=== PATIENT | female | born 1970 | race Caucasian/White ===

== ENCOUNTER 2020-04-08 | Outpatient (REF) | payer OTHER, SELFPAY | END 2020-04-08 00:01 | disposition home or self-care (01) | LOC: HO.LNP | PROVIDERS: Visit Provider Hospitalist | DX: E03.9 Hypothyroidism, unspecified (principal) | CPT/HCPCS: 84439; 84443 ==

== ENCOUNTER 2020-11-18 11:33 | Outpatient (REF) | payer OTHER, SELFPAY ==
[2020-11-20 07:27] LABS: SARS COV2 IgG Negative (Negative)
== END 2020-11-18 11:34 | disposition home or self-care (01) ==
LOC: HO.LAB 11:33
PROVIDERS: PCP Hospitalist; Visit Provider Nurse Practitioner Family
DX: Z00.00 Encounter for general adult medical examination without abnormal findings (principal); R43.9 Unspecified disturbances of smell and taste
CPT/HCPCS: 36415; 86769

== ENCOUNTER 2021-02-08 09:34 | Outpatient (REF) | payer OTHER, SELFPAY ==
[2021-02-11 01:51] LABS: TS Negative Control Passed; TS Panel A 0; TS Panel B 1; TS Positive Control Passed; TSpotTB Negative (SeeBelow)
== END 2021-02-08 09:35 | disposition home or self-care (01) ==
LOC: HO.WFDLDS 09:34
PROVIDERS: Visit Provider Family Medicine
DX: Z11.1 Encounter for screening for respiratory tuberculosis (principal)
CPT/HCPCS: 36415; 86481

== ENCOUNTER 2021-11-13 13:12 | Outpatient (REF) | payer OTHER, SELFPAY ==
[2021-11-14 07:17] LABS: CT PCR NOT DETECTED (Not Detect.); NG PCR NOT DETECTED (Not Detect.)
== END 2021-11-13 13:13 | disposition home or self-care (01) ==
LOC: HO.LAB 13:12
PROVIDERS: PCP Hospitalist; Visit Provider Obstetrics & Gynecology
DX: Z11.3 Encounter for screening for infections with a predominantly sexual mode of transmission (principal); N93.9 Abnormal uterine and vaginal bleeding, unspecified
CPT/HCPCS: 87491; 87591; 99202

== ENCOUNTER 2021-12-19 12:54 | Outpatient (REF) | payer OTHER, SELFPAY ==
--- NOTE | ~2021-12-19 | MM_ITS ---
EXAMINATION: MM SCREENING DIGITAL BREAST TOMOSYNTHESIS, BILATERAL CLINICAL INFORMATION: Screening. Asymptomatic. The lifetime risk of breast cancer based on the Tyrer-Cuzick Model is 7%. COMPARISON: Mammography: 10/10/2018, 11/27/2013 TECHNIQUE: Digital breast tomosynthesis is performed in both the craniocaudal and mediolateral oblique views along with computer-aided detection (CAD). Synthesized 2D images are generated from the tomosynthesis. FINDINGS: The breasts are almost entirely fatty (ACR BI-RADS breast composition Category a). Background stromal markings are stable. No developing density. The axilla and skin contours are unremarkable. There are no significant masses, abnormal calcifications, or other abnormalities. MM/MM tomosynthesis screening BI IMPRESSION: No mammographic evidence of malignancy. ASSESSMENT: BI-RADS 1: Negative RECOMMENDATION: Routine annual mammography screening. This patient's information was entered into a reminder system with a target due date for their next mammogram.
--- NOTE | ~2021-12-19 | US_ITS ---
EXAMINATION: US PELVIS CLINICAL INFORMATION: Abnormal uterine and vaginal bleeding. COMPARISON: CT scan of 12/23/2011. TECHNIQUE: Ultrasound of the pelvis is performed using both transabdominal and transvaginal transducers along with Doppler. Transvaginal imaging is performed due to inadequate visualization transabdominally. FINDINGS: UTERUS: The uterus is anteverted and measures 11.9 x 7.9 x 9.2 cm. The double wall endometrial thickness is abnormally thick at 24 mm. There is a 5.7 x 4.0 x 5.3 cm circumscribed hypoechoic lesion seen about the left fundus consistent with fibroid. ADNEXA: Both ovaries are visualized. There is normal color flow to the adnexa. There is no ovarian torsion. There is no pelvic ascites or fluid collection. Right ovary measures 2.8 x 2.5 x 2.7 cm. Volume of 10.1 mL. Left ovary measures 2.4 x 1.3 x 1.9 cm. Volume of 3.3 mL. US/US pelvic and transvaginal IMPRESSION: Abnormally thickened endometrium without definite focal abnormality appreciated. Uterine fibroid.
== END 2021-12-19 12:55 | disposition home or self-care (01) ==
LOC: HO.US 12:54
PROVIDERS: Visit Provider Obstetrics & Gynecology
DX: Z12.31 Encounter for screening mammogram for malignant neoplasm of breast (principal); N93.9 Abnormal uterine and vaginal bleeding, unspecified
CPT/HCPCS: 76830; 76856; 77063; 77067

== ENCOUNTER 2021-12-28 10:01 | Outpatient (REF) | payer OTHER, SELFPAY | END 2021-12-28 10:02 | disposition home or self-care (01) | LOC: HO.LAB 10:01 | PROVIDERS: PCP Hospitalist; Visit Provider Obstetrics & Gynecology | DX: N93.9 Abnormal uterine and vaginal bleeding, unspecified (principal) | CPT/HCPCS: 58100; 88305 ==

== ENCOUNTER → 2022-01-24 10:55 | Outpatient (BNVA) | payer OTHER, SELFPAY | PROVIDERS: PCP Hospitalist; Visit Provider Obstetrics & Gynecology | DX: D21.9 Benign neoplasm of connective and other soft tissue, unspecified (principal); E03.9 Hypothyroidism, unspecified; N93.9 Abnormal uterine and vaginal bleeding, unspecified | CPT/HCPCS: 99212 ==

== ENCOUNTER 2022-03-26 09:37 | Outpatient (REF) | payer OTHER, SELFPAY ==
[2022-03-26 11:29] LABS: Hematocrit 33.2 % (37.0-47.0); Hemoglobin 9.7 g/dl (12.0-16.0); Mean Corpuscular HGB Conc 29.2 g/dl (31.0-35.0); Mean Corpuscular Volume 78.7 fL (80.0-98.0); Mean Platelet Volume 9.1 fL (9.4-12.3); Platelet Count 362 X10*3/uL (160-400); Red Blood Count 4.22 X10*6/uL (4.20-5.50); Red Cell Distribution Width 14.6 % (11.0-16.0); White Blood Count 5.7 X10*3/uL (4.8-10.8)
[2022-03-26 12:39] LABS: TSH reflex Free T4 1.42 uIU/mL (0.32-4.0)
== END 2022-03-26 09:38 | disposition home or self-care (01) ==
LOC: HO.WFDLDS 09:37
PROVIDERS: Visit Provider Hospitalist
DX: Z00.00 Encounter for general adult medical examination without abnormal findings (principal); E03.9 Hypothyroidism, unspecified; N93.9 Abnormal uterine and vaginal bleeding, unspecified
CPT/HCPCS: 36415; 84443; 85027

== ENCOUNTER 2022-04-09 10:20 | Outpatient (REF) | payer OTHER, SELFPAY ==
[2022-04-09 14:03] LABS: Hemoglobin 10.5 g/dl (12.0-16.0); Mean Corpuscular Hemoglobin 24.1 pg (27.0-33.0); Mean Corpuscular Volume 80.5 fL (80.0-98.0); Mean Platelet Volume 9.3 fL (9.4-12.3); Platelet Count 349 X10*3/uL (160-400); Red Blood Count 4.35 X10*6/uL (4.20-5.50); Red Cell Distribution Width 17.6 % (11.0-16.0); White Blood Count 4.6 X10*3/uL (4.8-10.8)
[2022-04-09 14:39] LABS: HCG Quantitative < 2 mIU/mL; TSH reflex Free T4 5.38 uIU/mL (0.32-4.0)
[2022-04-09 15:21] LABS: Erythrocyte Sedimentation Rate 26 MM/HR (0-20)
[2022-04-09 15:23] LABS: Free T4 (Free Thyroxine) 1.12 ng/dL (0.71-1.85)
[2022-04-11 08:42] LABS: Follicle Stimulating Hormone 14.2 mIU/mL; Lutenizing Hormone 8.7 mIU/mL
[2022-04-11 12:36] LABS: CRP High Sensitivity >10.0 mg/L
== END 2022-04-09 10:21 | disposition home or self-care (01) ==
LOC: HO.WFDLDS 10:20
PROVIDERS: Absent Provider Hospitalist; Visit Provider Obstetrics & Gynecology
DX: N93.9 Abnormal uterine and vaginal bleeding, unspecified (principal); M79.10 Myalgia, unspecified site
CPT/HCPCS: 36415; 83001; 83002; 84439; 84443; 84702; 85027; 85652; 86141

== ENCOUNTER → 2022-04-30 10:10 | Outpatient (BNVA) | payer OTHER, SELFPAY | PROVIDERS: PCP Hospitalist; Visit Provider Obstetrics & Gynecology | DX: N93.9 Abnormal uterine and vaginal bleeding, unspecified (principal); D21.9 Benign neoplasm of connective and other soft tissue, unspecified | CPT/HCPCS: 99212 ==

== ENCOUNTER 2022-07-25 12:46 | Outpatient (REF) | payer OTHER, SELFPAY ==
--- NOTE | ~2022-07-25 | US_ITS ---
EXAMINATION: US PELVIS CLINICAL INFORMATION: Myoma. History of tubal ligation COMPARISON: Ultrasound pelvis 12/19/2021. TECHNIQUE: Ultrasound of the pelvis is performed using both transabdominal and transvaginal transducers along with Doppler. Transvaginal imaging is performed due to inadequate visualization transabdominally. FINDINGS: Uterus: The uterus is anteverted, slightly retroflexed and measures 10.6 x 6.2 x 7.5 cm. The double wall endometrial thickness is 1.7 cm. There are small nabothian cysts seen in the cervix. The uterus is smooth in contour and has normal myometrial echogenicity. There is a solitary hypoechoic lesion in the left fundus measuring 4.7 x 4.0 x 5.0 cm consistent with fibroid. Previously it measured 5.7 x 4.0 x 5.3 cm. Adnexa: Both ovaries are visualized. There is normal color flow to the adnexa. There is no ovarian torsion. There is no pelvic ascites or fluid collection. Right ovary measures 1.7 x 1.6 x 1.7 cm and volume 2.4 mL. There is a small echogenic calcification. Left ovary is not visualized. There is no free fluid in the cul-de-sac. US/US pelvic and transvaginal IMPRESSION: 1. Solitary uterine fibroid left fundus, minimally decreased in size from previous exam. Small nabothian cysts in the cervix. 2. Small echogenic calcification in the right ovary. 3. The left ovary is not seen. 4. There is no free fluid in the cul-de-sac.
== END 2022-07-25 12:47 | disposition home or self-care (01) ==
LOC: HO.US 12:46
PROVIDERS: PCP Hospitalist; Visit Provider Obstetrics & Gynecology
DX: D21.9 Benign neoplasm of connective and other soft tissue, unspecified (principal)
CPT/HCPCS: 76830; 76856

== ENCOUNTER → 2022-08-06 10:50 | Outpatient (BNVA) | payer OTHER, SELFPAY | PROVIDERS: PCP Hospitalist; Visit Provider Obstetrics & Gynecology | DX: D21.9 Benign neoplasm of connective and other soft tissue, unspecified (principal); N93.9 Abnormal uterine and vaginal bleeding, unspecified | CPT/HCPCS: 99212 ==

== ENCOUNTER 2023-04-17 10:16 | Outpatient (AMB) | payer SELFPAY ==
--- NOTE | 2023-04-17 10:18 | MHC.OFFWIV ---
Intake Vital Signs 04/17/23 10:19 Height 5 ft 2 in Weight 250 lb BMI 45.7 BP 130/80 Blood Pressure Location Lt brachial Position Sitting Pulse 80 Pulse Source Pulse Oximeter Temp 98.0 F Temp Source Temporal Artery Scan Pulse Oximetry (%) 97 Oxygen Delivery Method Room Air Intake Visit Reasons: EST/UTI(lobby) Intake Note: pt is here for c/o possible uti Patient Tobacco Use Status: Never used Tobacco Allergies No Known Allergies Allergy (Verified 04/17/23 10:19) Do you need a note to return to daycare/school/sports/work: No HPI EST/UTI(lobby) HPI Details 53-year-old female patient presents today for concern of UTI. [facility] Surgical History History of cholecystectomy Family History Father No problems noted. Mother Diabetes Hypothyroid Osteoarthritis Maternal Grandmother Medical history unknown Social History Housing: Unknown / Unable to assess Alcohol intake: never Patient Tobacco Use Status: Never used Tobacco e-Cigarette/Vaping Use: Never Used Second Hand Smoke Exposure: No service: No Current occupational status: unemployed Current occupational exposures/hazards: No Cognitive needs: No Hearing needs: No Vision needs: No Review of Systems Const All systems reviewed & are unremarkable except as noted in HPI and below Physical Exam Const General: cooperative, healthy appearing and no acute distress Resp Effort & Inspection: normal respiratory effort General: Yes bladder normal to palpation and Yes no CVA tenderness Bimanual exam- vagina & uterus: bladder normal to palpation Back/Spine/Pelvis Back: no CVA tenderness Skin General skin exam: no rashes or lesions noted Extrem General: Yes no clubbing, cyanosis or edema Psych Appearance: grossly normal Mental Status: mental status grossly normal Speech and movement: Normal speech and movement present Results AMB Urinalysis, Automated UA Leukoctes 500 Ashley/uL Last Edit by Jamari Smith CMA on 04/17/23 10:39 UA Nitrite Positive Last Edit by Jamari Smith CMA on 04/17/23 10:39 UA Urobilinogen 0.2 mg/dL Last Edit by Jamari Smith CMA on 04/17/23 10:39 UA Protein 0 mg/dL Last Edit by Jamari Smith CMA on 04/17/23 10:39 UA pH 6.0 Last Edit by Jamari Smith, CLAUDIA on 04/17/23 10:39 UA Blood 200 Kerwin/uL Last Edit by Jamari Smith CMA on 04/17/23 10:39 UA Specific [place] 1.015 Last Edit by Jamari Smith CMA on 04/17/23 10:39 UA Ketone Negative Last Edit by Jamari Smith CMA on 04/17/23 10:39 UA Bilirubin 0 mg/dL Last Edit by Jamari Smith CMA on 04/17/23 10:39 UA Glucose 0 mg/dL Last Edit by Jamari Smith CMA on 04/17/23 10:39 Assessment & Plan Assessment & Plan (1) Cystitis: Code(s): N30.90 - Cystitis, unspecified without hematuria Plan: Macrobid BID 5 days for UTI. Urine dip in the office shows leukocytes, blood, nitrites. Patient reports she is at the end of her menses, and so the blood may be attributed to this. I have advised increased hydration. Also prescribed Pyridium for her dysuria. If she does not improve with treatment or if she develops any fever, chills, increased pain, or flank pain, she should return to the clinic for further evaluation. She verbalizes understanding and agrees to plan. Orders: Orders AMB Urinalysis Automated Today Z13.9 - Encounter for screening, unspecified Medications: New nitrofurantoin macrocrystal must administer with a meal/food 100 mg PO BID 5 days 10 caps 0RF N30.90 - Cystitis, unspecified without hematuria phenazopyridine 200 mg PO TID PRN 6 tabs 0RF pain N30.90 - Cystitis, unspecified without hematuria Coding Level of Care Code Est Pt Level 3 (23462) Diagnoses Cystitis N30.90
[2023-04-17 10:19] VITALS: BP 130/80; PULSE 80; TEMP 36.7; O2SAT 97; BMI 45.7
== END 2023-04-17 10:43 | disposition home or self-care (01) ==
PROVIDERS: PCP Hospitalist; Visit Provider Nurse Practitioner Family
DX: N30.90 Cystitis, unspecified without hematuria (principal); R30.0 Dysuria
CPT/HCPCS: 81003; 99213

== ENCOUNTER 2023-07-25 11:56 | Emergency (ER) | payer SELFPAY ==
--- NOTE | ~2023-07-25 | US_ITS ---
EXAMINATION:US pelvic and transvaginal CLINICAL INFORMATION: Reason for Exam pain and bleeding COMPARISON: Prior ultrasound 07/25/2022. LMP: Ongoing FINDINGS: Exam is limited due to patient's body habitus bladder filling during the exam UTERUS: The uterus is anteverted. Size: 11.6 x 5.1 x 7.1 cm. Uterine mass: Intramural uterine mass likely fibroid 5.9 x 3.9 x 4.8 cm slightly larger compared to 4.7 x 4 x 5 cm on prior ultrasound Cervix: There are nabothian cysts otherwise Grossly unremarkable. Endometrium: No ultrasound evidence of endometrial lesion. endometrial thickness measures 1.7 cm ADNEXA: Normal Right ovary: Normal in size. There are normal follicles. Left ovary: Normal size. There are normal follicles. Doppler exam: Normal Doppler flow. FREE FLUID: Trace amount of free fluid. OTHER FINDINGS: None US/US pelvic and transvaginal IMPRESSION: Redemonstration of intramural uterine mass likely fibroid now measure up to 5.9 cm has enlarged compared to 4.7 cm on prior study. No ultrasound explanation for patient's pain symptoms.
[2023-07-25 12:02] VITALS: BP 150/98; PULSE 88; RESP 18; TEMP 36.5; O2SAT 98; BMI 45.7
--- NOTE | 2023-07-25 12:04 | ED_ITS ---
HPI - General Adult General Chief complaint: Vaginal Bleeding Stated complaint: Vaginal bleeding, nausea Time Seen by Provider: 07/25/23 16:34 Source: patient Mode of arrival: ambulatory History of Present Illness HPI narrative: 53-year-old female with known uterine fibroid comes in as a still menstruating female and reporting heavy vaginal bleeding since Saturday and feelings of weakness and mild nausea. Related Data Previous Rx's Medication Instructions Recorded ferrous sulfate 325 mg (65 mg 325 mg PO DAILY #90 tabs 03/26/22 iron) tablet mometasone-formoterol HFA 100 2 puff inhalation BID #13 grams 04/11/22 mcg-5 mcg/actuation aerosol inhaler tranexamic acid 650 mg tablet 1,300 mg (2 x 650 mg) PO TID 5 04/30/22 (Lysteda) days #30 tabs ProAir HFA 90 mcg/actuation 2 puff inhalation Q4-6H PRN 05/07/22 aerosol inhaler (albuterol sulfate) shortness of breath or wheezing 1 month #8.5 grams sumatriptan succinate 100 mg tablet 100 mg PO BID PRN for migraine #12 01/02/23 tabs montelukast 10 mg tablet 10 mg PO BEDTIME #90 tabs 01/09/23 (Singulair) levothyroxine 125 mcg tablet 125 mcg PO DAILY #30 tabs 04/10/23 nitrofurantoin macrocrystal 100 mg 100 mg PO BID 5 days #10 caps 04/17/23 capsule phenazopyridine 200 mg tablet 200 mg PO TID PRN pain 6 doses #6 04/17/23 tabs Allergies Allergy/AdvReac Type Severity Reaction Status Date / Time No Known Allergies Allergy Verified 04/17/23 10:19 Review of Systems 2 Review of Systems: Pertinent positives and negatives as stated in the HPI [facility] Past Medical History Source: nursing notes reviewed Surgical History History of cholecystectomy Family History Family History Father No problems noted. Mother Diabetes Hypothyroid Osteoarthritis Maternal Grandmother Medical history unknown Social History Social History Housing: Unknown / Unable to assess Alcohol intake: never Patient Tobacco Use Status: Never used Tobacco e-Cigarette/Vaping Use: Never Used Second Hand Smoke Exposure: No Advance Directives: No Advance Directives Information Provided: No service: No Current occupational status: unemployed Current occupational exposures/hazards: No Cognitive needs: No Hearing needs: No Vision needs: No Physical Exam ED Vital Signs: Vital Signs - 24 hr 07/25/23 12:02 Temperature 97.7 F Pulse Rate 88 Respiratory Rate 18 Blood Pressure 150/98 H Pulse Oximetry 98 Oxygen Delivery Method Room Air BMI result Body Mass Index 45.7 VITAL SIGNS: Reviewed. GENERAL: Well developed, well nourished, in no acute distress. HEAD: Normocephalic/atraumatic EYES: PERRLA, EOMI EARS: Ext canals without abnormality NOSE: Nares patent bilateral OROPHARYNX: no oral lesions noted, posterior pharynx clear NECK: Supple, no adenopathy LUNGS: Normal breath sounds. No adventitious sounds or accessory muscle use. SpO2<98> CARDIOVASCULAR: Regular rate and rhythm without noted murmurs ABDOMEN: Soft, non-tender, non-distended with bowel sounds. MUSCULOSKELETAL: No tenderness, deformities, or effusions noted on gross inspection. EXTREMITIES: No cyanosis, clubbing or edema. SKIN: Inspection of the skin reveals no rashes NEUROLOGIC: Alert and oriented x 4. Strength and sensation to light touch were grossly intact x 4. Course Course Course Narrative: RME- 53 year old female presents for evaluation of vaginal bleeding. She reports a history of fibroids. She follows with Dr Bradshaw. Plan for labs, UA, ultrasound. Medical Decision Making Medical Decision Making MDM Narrative: 53-year-old female with history and clinical presentation, DDX: Heavy menstrual bleeding secondary to known uterine fibroid, anemia Reviewed all investigations and hematologic indices negative for leukocytosis or left shift, there is a stable normocytic anemia that is actually improved when compared to prior from 2021, otherwise no thrombocytopenia. Coagulation studies are within normal limits. Chemistry indices demonstrate a mild ANA but otherwise no electrolyte derangements. Patient denies any urinary symptoms. Pelvic/transvaginal ultrasound demonstrates a uterine fibroid which has increased in size and otherwise endometrial thickness-1.7. Type and screen demonstrates the patient is O positive. Vital signs do not demonstrate any evidence of hypotension or tachycardia. I discussed all findings with the patient at bedside, I reassured her regarding the endometrial thickness and did inform her that the fibroid has increased in size. We discussed adequate pain control as well as return precautions. She was also encouraged to increase fluid intake as comparison creatinine level is from 2021 and is of unclear significance. Patient is also encouraged to continue taking [id number] iron supplements. Differential Diagnosis Differential Diagnoses: The differential diagnosis associated with the presentation includes Please see the discussion above Admission/Observation Consideration of admission/observation: Escalation of care including admission/observation considered Please see the discussion above Lab Data MDM Lab Attestation statement: I reviewed the patient's lab results. Please see the discussion above 07/25/23 12:10 07/25/23 12:10 Labs: Lab Results 07/25/23 Range/Units 12:10 WBC 8.4 (4.8-10.8) X10*3/uL RBC 3.93 L (4.20-5.50) X10*6/uL Hgb 11.5 L (12.0-16.0) g/dl Hct 34.3 L (37.0-47.0) % MCV 87.3 (80.0-98.0) fL MCH 29.3 (27.0-33.0) pg MCHC 33.5 (31.0-35.0) g/dl RDW 15.6 (11.0-16.0) % Plt Count 358 (160-400) X10*3/uL MPV 9.0 L (9.4-12.3) fL Immature Gran % (Auto) 0.4 (0.0-0.4) % Neut % (Auto) 56.8 (45-73) % Lymph % (Auto) 35.2 (20-40) % Atkinson % (Auto) 4.5 (2-11) % Eos % (Auto) 2.3 (0-4) % Baso % (Auto) 0.8 (0-2) % Lymph # (Auto) 2.9 (1.2-4.9) X10*3/uL Atkinson # (Auto) 0.4 (0.1-1.2) X10*3/uL Eos # (Auto) 0.2 (0.0-0.4) X10*3/uL Baso # (Auto) 0.1 (0.0-0.2) X10*3/uL Abs Immat Gran (auto) 0.03 (0.00-0.03) X10*3/uL Absolute Neuts (auto) 4.8 (2.0-8.3) x10*3/uL Absolute Nucleated RBC 0.000 (0.0-0.012) X10*3/uL Nucleated RBC % (auto) 0.0 (0.0-0.2) /100WBC PT 12.2 (11.1-13.3) SEC INR 1.0 (0.9-1.1) APTT 35.5 (26.0-36.8) SEC Sodium 139 (135-145) mmol/L Potassium 3.8 (3.3-5.1) mmol/L Chloride 102 (96-108) mmol/L Carbon Dioxide 26 (22-29) mmol/L Anion Gap 15 (12-20) BUN 11 (9-16) mg/dL Creatinine 1.62 H (0.5-1.4) mg/dL Estim Creat Clear Calc 48.4 Estimated GFR 33 Random Glucose 117 H (60-115) mg/dL Calcium 9.3 (8.4-10.2) mg/dL Blood Type O Positive Antibody Screen NEGATIVE Radiology Impression Discussion of test interpretation with radiology: I have reviewed the radiologist's reading. Radiologist Impression: Please see the discussion above External Record Review External record reviewed: Outpatient record, Prior outpatient labs and Prior outpatient radiology Critical Care Time Critical Care Time Critical Care Time: Yes Total Critical Care Time: 45 Attestation: I personally attest to this time spent taking care of the patient. Discharge Plan Discharge Clinical Impression: DUB (dysfunctional uterine bleeding), Uterine fibroid Patient Disposition: Home, Self-Care Instructions: Dysfunctional Uterine Bleeding (ED) Additional Instructions: 1. Resume all home medications as prescribed. Your workup today demonstrated that you still have the uterine fibroid though it has slightly increased in size. 2. Please return to the emergency room if you begin saturating a pad every hour for 4 hours. Please return to the emergency room if your abdominal discomfort is not controlled by [id number] Tylenol/ibuprofen. 3. As soon as your insurance is reestablished please call the office of Dr. Bradshaw re-evaluation and further discussion about the next steps for this fibroid. Prescriptions: No Action ferrous sulfate 325 mg (65 mg iron) tablet 325 mg PO DAILY Qty: 90 2RF mometasone-formoterol 100-5 mcg/actuation HFA aerosol inhaler 2 puff inhalation BID Qty: 13 2RF albuterol sulfate [ProAir HFA] 90 mcg/actuation HFA aerosol inhaler 2 puff inhalation Q4-6H PRN (Reason: shortness of breath or wheezing) 30 Days Qty: 8.5 0RF Rx Instructions: pt unable to take ventolin secondary to palpitations and feeling shakey please send pro air as she has tolerated this sumatriptan succinate 100 mg tablet 100 mg PO BID PRN (Reason: for migraine) Qty: 12 6RF montelukast [Singulair] 10 mg tablet 10 mg PO BEDTIME Qty: 90 1RF levothyroxine 125 mcg tablet 125 mcg PO DAILY Qty: 30 3RF nitrofurantoin macrocrystal 100 mg capsule 100 mg PO BID 5 Days Qty: 10 0RF Rx Instructions: must administer with a meal/food phenazopyridine 200 mg tablet 200 mg PO TID PRN (Reason: pain) Qty: 6 0RF tranexamic acid [Lysteda] 650 mg tablet 1,300 mg PO TID 5 Days Qty: 30 2RF Rx Instructions: Start 1st day of menses and take it up to 3-5 days of menses.
[2023-07-25 12:16] LABS: MANUAL DIFF FLAG NO
[2023-07-25 12:20] LABS: Basophils Absolute Auto 0.1 X10*3/uL (0.0-0.2); Basophils Percent Auto 0.8 % (0-2); Eosinophils Absolute Auto 0.2 X10*3/uL (0.0-0.4); Eosinophils Percent Auto 2.3 % (0-4); Hematocrit 34.3 % (37.0-47.0); Hemoglobin 11.5 g/dl (12.0-16.0); Imm Gran Abs Auto 0.03 X10*3/uL (0.00-0.03); Imm Gran Pct Auto 0.4 % (0.0-0.4); Lymphocytes Absolute Auto 2.9 X10*3/uL (1.2-4.9); Lymphocytes Percent Auto 35.2 % (20-40); Mean Corpuscular HGB Conc 33.5 g/dl (31.0-35.0); Mean Corpuscular Hemoglobin 29.3 pg (27.0-33.0); Mean Corpuscular Volume 87.3 fL (80.0-98.0); Monocytes Absolute Auto 0.4 X10*3/uL (0.1-1.2); Monocytes Percent Auto 4.5 % (2-11); Neutrophils Absolute Auto 4.8 x10*3/uL (2.0-8.3); Neutrophils Percent Auto 56.8 % (45-73); Platelet Count 358 X10*3/uL (160-400); Red Blood Count 3.93 X10*6/uL (4.20-5.50); Red Cell Distribution Width 15.6 % (11.0-16.0); White Blood Count 8.4 X10*3/uL (4.8-10.8)
[2023-07-25 12:26] LABS: Prothrombin Time 12.2 SEC (11.1-13.3)
[2023-07-25 12:28] LABS: Partial Thromboplastin Time 35.5 SEC (26.0-36.8)
[2023-07-25 12:34] LABS: Anion Gap 15 (12-20); Blood Urea Nitrogen 11 mg/dL (9-16); Calcium 9.3 mg/dL (8.4-10.2); Carbon Dioxide 26 mmol/L (22-29); Chloride 102 mmol/L (96-108); Creatinine Clr Calc Pharmacy 48.4; Estimated Glomerular Filt Rate 33; Glucose Random 117 mg/dL (60-115); Potassium 3.8 mmol/L (3.3-5.1); Sodium 139 mmol/L (135-145)
[2023-07-25] MEDS: Acetaminophen 325 MG TABLET 975 MG PO (17:22)
[2023-07-25] MEDS: Ibuprofen 400 MG TABLET PO (17:22)
[2023-07-25 17:26] VITALS: BP 110/59; PULSE 71; RESP 18; TEMP 36.7; O2SAT 98
[2023-07-25 18:09] LABS: HCG Quantitative < 2 mIU/mL
== END 2023-07-25 17:29 | disposition home or self-care (01) ==
PROVIDERS: Physician Assistant; Emergency Provider Student in an Organized Health Care Education/Training Program
DX: N93.8 Other specified abnormal uterine and vaginal bleeding (principal); D25.1 Intramural leiomyoma of uterus; N17.9 Acute kidney failure, unspecified; D50.9 Iron deficiency anemia, unspecified; R53.1 Weakness; E66.9 Obesity, unspecified; Z68.42 Body mass index [BMI] 45.0-49.9, adult; Z79.899 Other long term (current) drug therapy
CPT/HCPCS: 36415; 76830; 76856; 80048; 84702; 85025; 85610; 85730; 86850; 86900; 86901; 99284

== ENCOUNTER 2024-04-28 11:31 | Outpatient (AMB) | payer BC, SELFPAY ==
--- NOTE | 2024-04-28 11:43 | MHC.PC.OV ---
Vital Signs 04/28/24 11:49 Height 5 ft 2 in Weight 259 lb 8 oz BMI 47.5 BP 112/76 Blood Pressure Location Rt brachial Position Sitting Pulse 77 Pulse Source Pulse Oximeter Pulse Oximetry (%) 96 Oxygen Delivery Method Room Air Intake Visit Reasons: JUANJOSE from [employer] Intake Note: New patient visit Correspondence Renew Clerk Required: No Allergies No Known Allergies Allergy (Verified 04/28/24 11:44) Tobacco use date assessed: 04/28/24 Dental Screening Dental Screen Date: 04/28/24 Did you have a dental visit in the last 12 months?: No Did you have a dental problem in the last 6 months where you did not have access to dental care?: No Was dental information given to patient?: Yes HPI HPI Comments History of Present Illness Details 54 year old female with a past medical history of migraine, asthma, hypothyroid, KAMRYN presenting [facility]. Internal transfer-previous provider left the practice Asthma: well controlled off medication. Previously on advair, singular and prn albuterol Migraine: stable on prn imitrex Hypothyroid: on levothyroxine 125mcg daily. Due for TSH Declines mammogram Ok for cologuard. Declines colonoscopy ROS CONSTITUTIONAL: Denies weight loss, fever and chills. HEENT: Denies changes in vision and hearing. RESPIRATORY: Denies SOB and cough. CV: Denies palpitations and CP GI: Denies abdominal pain, nausea, vomiting and diarrhea. : Denies dysuria and urinary frequency. MSK: Denies new myalgia and joint pain. SKIN: Denies rash and pruritus. NEUROLOGICAL: Denies headache PSYCHIATRIC: Denies recent changes in mood. PHYSICAL EXAM: GENERAL: Alert and oriented x 3. NAD EYES: EOMI. Anicteric. HENT: Moist mucous membranes. No scleral icterus. No cervical lymphadenopathy. LUNGS: Clear to auscultation bilaterally. CARDIOVASCULAR: Regular rate and rhythm. No murmur. No JVD. ABDOMEN: Soft, non-tender +bs EXTREMITIES: No edema. Non-tender. SKIN: No rashes or lesions. Warm. NEUROLOGIC: No focal neurological deficits. CN II-XII grossly intact PSYCHIATRIC: Cooperative. Appropriate mood and affect [facility] Medical History Varicose vein of leg Surgical History H/O tubal ligation History of cholecystectomy Family History Father No problems noted. 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 1. Little interest or pleasure in doing things: not at all 2. Feeling down, depressed, or hopeless: not at all 3. Trouble falling or staying asleep, or sleeping too much: not at all 4. Feeling tired or having little energy: not at all 5. Poor appetite or overeating: not at all 6. Feeling bad about yourself - or that you are a failure or have let yourself or your family down: not at all 7. Trouble concentrating on things, such as reading the newspaper or watching television: not at all 8. Moving or speaking so slowly that other people could have noticed. Or the opposite - being so fidgety or restless that you have been moving around a lot more than usual: not at all 9. Thoughts that you would be better off or of hurting yourself in some way: not at all Total score: 0 Depression Screening Interpretation: Negative Depression Screening Done: Yes 67022 - PHQ-9 Billing: Yes Source: Developed by Drs. Redd Luevano, Adriana Truong, Javier Cruz and colleagues, with an educational jin from [employer]. Thrive Questionnaire Date Thrive assessed: 03/15/21 I am a: Patient What is your living situation today?: I have a steady place to live Within the past 12 months, did the food you bought not last and you didn't have the money to get more?: Never true Within the past 12 months, did you worry whether your food would run out before you got money to buy more?: Never true Do you have trouble paying for medicines?: No Do you have trouble getting transportation to medical appointments?: No Do you have trouble paying your heating and electricity bill?: I choose not to answer this question Do you have trouble taking care of your child, family member or friend?: No Do you have trouble with day-to-day activities such as bathing, preparing meals, shopping, managing finances, etc.?: No Are you currently unemployed and looking for a job?: No Are you interested in more education?: No Please select the resources that you would like help with: None Currently or been in a relationship where the following occur: No concerns reported THRIVE Score: 0 AUDIT C Alcohol Use Questionnaire (AUDIT-C) 1. How often do you have a drink containing alcohol?: Never Total Score: 0 KEARA-7 AMB Questionnaire KEARA-7 Date KEARA - 7 assessed: 04/09/22 Feeling nervous, anxious, or on edge: 0 = Not at all Not being able to stop or control worryin = Not at all Worrying too much about different things: 0 = Not at all Trouble relaxin = Not at all Being so restless that it is hard to sit still: 0 = Not at all Becoming easily annoyed or irritable: 0 = Not at all Feeling afraid as if something awful might happen: 0 = Not at all Total KEARA-7 score (0-4 normal; 5-9 mild; 10-14 moderate; 15-21 severe): 0 Source: Developed by Drs. Redd Luevano, Adriana Truong, Javier Cruz and colleagues, with an educational jin from [employer]. Physical exam (Primary Care) Vital Signs: Last Vital Signs Pulse 77 04/28/24 11:49 BP 112/76 04/28/24 11:49 Pulse Ox 96 04/28/24 11:49 Oxygen Delivery Method Room Air 04/28/24 11:49 BMI result Body Mass Index 47.5 Tobacco/Smoking Status: Tobacco use Status Tobacco use date assessed 04/28/24 04/28/24 11:52 Patient Tobacco Use Status Never used Tobacco 04/28/24 11:52 e-Cigarette/Vaping Use Never Used 04/28/24 11:52 PHQ-9: PHQ-9 Score PHQ-9: Total score 0 04/28/24 11:52 Depression Screening Interpretation: Negative Thrive Assessment: Date of Thrive Assessment Date Thrive assessed 03/15/21 04/28/24 11:52 Currently or been in a relationship where the following occur: No concerns reported Coding Level of Care Code Est Pt Level 4 (83963) Diagnoses Mild intermittent asthma without complication J45.20 Asthma complication type: uncomplicated Migraine with aura and without status migrainosus, not intractable G43.109 Status migrainosus presence: without status migrainosus Intractability: not intractable Hypothyroidism (acquired) E03.9 Assessment & Plan Assessment & Plan (1) Mild intermittent asthma: Code(s): J45.20 - Mild intermittent asthma, uncomplicated Category: Medical Qualifiers: Asthma complication type: uncomplicated Qualified Code(s): J45.20 - Mild intermittent asthma, uncomplicated Plan: Stable off medications (2) Migraine headache with aura: Code(s): G43.109 - Migraine with aura, not intractable, without status migrainosus Category: Medical Qualifiers: Status migrainosus presence: without status migrainosus Intractability: not intractable Qualified Code(s): G43.109 - Migraine with aura, not intractable, without status migrainosus Plan: Imitrex refilled. Stable frequency and severity (3) Hypothyroidism (acquired): Code(s): E03.9 - Hypothyroidism, unspecified Category: Medical Plan: Clinically and biochemicall euthyroid. Due for labs which are ordered Orders: Orders TSH reflex Free T4 Today D50.8 - Other iron deficiency anemias, E03.9 - Hypothyroidism, unspecified, R73.09 - Other abnormal glucose IRON PROFILE Today D50.8 - Other iron deficiency anemias, N93.9 - Abnormal uterine and vaginal bleeding, unspecified Complete Blood Count Auto Diff Today D50.8 - Other iron deficiency anemias, E03.9 - Hypothyroidism, unspecified, R73.09 - Other abnormal glucose Comprehensive Met. Panel Today D50.8 - Other iron deficiency anemias, E03.9 - Hypothyroidism, unspecified, R73.09 - Other abnormal glucose Hemoglobin A1c Today D50.8 - Other iron deficiency anemias, E03.9 - Hypothyroidism, unspecified, R73.09 - Other abnormal glucose US pelvic and transvaginal Today D50.8 - Other iron deficiency anemias, N93.9 - Abnormal uterine and vaginal bleeding, unspecified Referrals Cologuard Test Z12.11 - Encounter for screening for malignant neoplasm of colon, Z12.12 - Encounter for screening for malignant neoplasm of rectum Medications: Refilled levothyroxine 125 mcg PO DAILY 90 tabs 3RF E03.9 - Hypothyroidism, unspecified sumatriptan succinate 100 mg PO BID PRN 12 tabs 6RF for migraine Discontinued ProAir HFA 90 mcg/actuation (albuterol sulfate) pt unable to take ventolin secondary to palpitations and feeling shakey please send pro air as she has tolerated this Discontinued Reason: Doctor's Order 2 puffs inhalation Q4-6H 1 month PRN 8.5 grams 0RF shortness of breath or wheezing NS
[2024-04-28 11:49] VITALS: BP 112/76; PULSE 77; O2SAT 96; BMI 47.5
== END 2024-04-28 12:10 | disposition home or self-care (01) ==
LOC: HO.HMCFM 11:32
PROVIDERS: Visit Provider Internal Medicine
DX: J45.20 Mild intermittent asthma, uncomplicated (principal); G43.109 Migraine with aura, not intractable, without status migrainosus; E03.9 Hypothyroidism, unspecified

== ENCOUNTER → 2024-04-28 11:31 | Outpatient (BNVA) | payer BC, SELFPAY | PROVIDERS: Visit Provider Internal Medicine ==

== ENCOUNTER 2024-04-28 12:34 | Outpatient (REF) | payer BC, SELFPAY ==
[2024-04-28 14:33] LABS: MANUAL DIFF FLAG NO
[2024-04-28 14:38] LABS: Basophils Absolute Auto 0.1 X10*3/uL (0.0-0.2); Eosinophils Absolute Auto 0.1 X10*3/uL (0.0-0.4); Eosinophils Percent Auto 2.1 % (0-4); Hemoglobin 10.4 g/dl (12.0-16.0); Imm Gran Abs Auto 0.01 X10*3/uL (0.00-0.03); Imm Gran Pct Auto 0.2 % (0.0-0.4); Lymphocytes Absolute Auto 2.7 X10*3/uL (1.2-4.9); Lymphocytes Percent Auto 42.5 % (20-40); Mean Corpuscular HGB Conc 29.7 g/dl (31.0-35.0); Mean Corpuscular Hemoglobin 23.9 pg (27.0-33.0); Mean Corpuscular Volume 80.5 fL (80.0-98.0); Mean Platelet Volume 9.6 fL (9.4-12.3); Monocytes Absolute Auto 0.5 X10*3/uL (0.1-1.2); Monocytes Percent Auto 7.4 % (2-11); Neutrophils Absolute Auto 2.9 x10*3/uL (2.0-8.3); Neutrophils Percent Auto 46.8 % (45-73); Platelet Count 392 X10*3/uL (160-400); Red Blood Count 4.35 X10*6/uL (4.20-5.50); Red Cell Distribution Width 18.8 % (11.0-16.0); White Blood Count 6.2 X10*3/uL (4.8-10.8)
[2024-04-28 14:53] LABS: Estimated Average Glucose 114 mg/dL; Hemoglobin A1c % 5.6 % (<6.0); Total Hemoglobin (HGBA1C) 2781.9525 umol/L
[2024-04-28 15:30] LABS: Alanine Aminotransferase 52 U/L (0-31); Albumin Level 4.3 g/dL (3.5-5.0); Anion Gap 12 (12-20); Aspartate Amino Transferase 45 U/L (5-31); Bilirubin Total 0.3 mg/dL (0.0-1.0); Blood Urea Nitrogen 12 mg/dL (9-16); Calcium 9.6 mg/dL (8.4-10.2); Carbon Dioxide 26 mmol/L (22-29); Chloride 105 mmol/L (96-108); Estimated Glomerular Filt Rate > 60; Glucose Random 90 mg/dL (60-115); Iron 33 mcg/dL (30-160); Percent Iron Saturation 8 % (15-50); Potassium 3.8 mmol/L (3.3-5.1); Sodium 139 mmol/L (135-145); TSH reflex Free T4 2.67 uIU/mL (0.32-4.0); Total Iron Binding Capacity 410 mcg/dL (228-428); Total Protein 7.9 g/dL (6.5-8.0); Unsaturated Iron Binding 377 ug/dL
[2024-04-28 16:43] LABS: Alkaline Phosphatase 111 U/L (39-117)
== END 2024-04-28 12:35 | disposition home or self-care (01) ==
LOC: HO.WFDLDS 12:34
PROVIDERS: Visit Provider Internal Medicine
DX: E03.9 Hypothyroidism, unspecified (principal); R73.09 Other abnormal glucose; D50.8 Other iron deficiency anemias; N93.9 Abnormal uterine and vaginal bleeding, unspecified
CPT/HCPCS: 36415; 80053; 83036; 83540; 84443; 85025

== ENCOUNTER 2024-05-11 10:41 | Outpatient (REF) | payer BC, SELFPAY ==
--- NOTE | ~2024-05-11 | US_ITS ---
EXAMINATION:US PELVIS TRANSABDOMINAL AND TRANSVAGINAL CLINICAL INFORMATION: D50.8 - Other iron deficiency anemias COMPARISON: No priors available. LMP: Unknown FINDINGS: UTERUS: The uterus is anteverted. Size: 9.4 x 4.6 x 5.9 cm. Uterine mass: Intramural uterine mass likely fibroid measuring up to 4.8 cm, not significantly changed from prior exam allowing for interobserver variability. Cervix: There are nabothian cysts otherwise Grossly unremarkable. Endometrium: Thickened endometrial thickness measures 1.1 cm abnormal for patient's age and postmenopausal status, cannot rule out pathology. ADNEXA: Normal Right ovary: Normal in size. Tiny echogenic focus questionable significance. Left ovary: Normal in size. Cystic structure likely nabothian cysts measure up to 1.6 cm. Doppler exam: Normal Doppler flow identified in both ovaries. FREE FLUID: Trace amount of free fluid. OTHER FINDINGS: None US/US pelvic and transvaginal IMPRESSION: 1. Redemonstration of intramural uterine mass likely fibroid 4.8 cm, not significantly changed from prior exam allowing for interobserver variability. 2. Thickened endometrium measuring up to 1.1 cm, abnormal for patient's age and postmenopausal status, cannot rule out endometrial pathology. Consider PAYROLL OFFICER consultation, D&C, if not performed correlation with follow-up pelvic MRI and/or ultrasound in 6-8 weeks. 3. Cystic structure in the left ovary 1.6 cm probably nabothian cyst. Electronically signed by: Lashonda Reynaga MD 06/20/2024 04:03 PM ROLLY
== END 2024-05-11 10:42 | disposition home or self-care (01) ==
LOC: HO.US 10:41
PROVIDERS: PCP Internal Medicine; Visit Provider Internal Medicine
DX: D50.8 Other iron deficiency anemias (principal); N93.9 Abnormal uterine and vaginal bleeding, unspecified
CPT/HCPCS: 76830; 76856

== ENCOUNTER 2024-07-02 09:44 | Outpatient (AMB) | payer BC, SELFPAY ==
--- NOTE | 2024-07-02 09:47 | MHC.OFFVIS ---
Intake Visit Reasons: U/S F/U Research Quality Assurance Specialist: Research Quality Assurance Specialist Present ([place]) Accompanied by: Self / Same As Patient Allergies No Known Allergies Allergy (Verified 07/02/24 09:48) HPI Comments Details: Presenting referred regarding abnormal uterine bleeding associated with passage of blood clots and pelvic cramping. The following workup was done Pelvic ultrasound done in 05/17 which showed the following: UTERUS: The uterus is anteverted. Size: 9.4 x 4.6 x 5.9 cm. Uterine mass: Intramural uterine mass likely fibroid measuring up to 4.8 cm, not significantly changed from prior exam allowing for interobserver variability. Cervix: There are nabothian cysts otherwise Grossly unremarkable. Endometrium: Thickened endometrial thickness measures 1.1 cm abnormal for patient's age and postmenopausal status, cannot rule out pathology. ADNEXA: Normal Right ovary: Normal in size. Tiny echogenic focus questionable significance. Left ovary: Normal in size. Cystic structure likely nabothian cysts measure up to 1.6 cm. Doppler exam: Normal Doppler flow identified in both ovaries. FREE FLUID: Trace amount of free fluid. OTHER FINDINGS: None 05/17 H&H was 10.4/35, TSH within normal Last Pap smear was in 10/10 was negative Last mammogram in 12/13 was BI-RADS 1 PFS Medical History Varicose vein of leg Surgical History H/O tubal ligation History of cholecystectomy Family History Father No problems noted. 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 Current occupational exposures/hazards: No Cognitive needs: No Hearing needs: No Vision needs: Yes (reading glasses ) Review of Systems Const All systems reviewed & are unremarkable except as noted in HPI and below Card Reports as per HPI Resp Reports as per HPI GI Reports as per HPI and Reports no additional complaints Reports as per HPI Physical Exam Const General: cooperative, healthy appearing and comfortable Chest Chest palpation & inspection: normal inspection of the chest and normal palpation of entire chest wall Breast/axilla inspection: normal inspection of the breasts and normal inspection of the axillae Breast/axilla palpation: normal palpation of the breasts, normal palpation of the axillae and no axillary lymphadenopathy Resp Effort & Inspection: normal respiratory effort Auscultation: clear to auscultation bilaterally Percussion: percussion normal Cardio Palpation: normal PMI Rate: regular rate Rhythm: regular rhythm Heart sounds: no murmurs and no rubs Peripheral pulses: Peripheral pulses 2+ throughout GI Inspection: Yes normal to inspection Palpation (GI): Soft to palpation, nontender, no guarding, not rigid and No hepatosplenomegaly present Percussion: Yes normal to percussion Auscultation: normal bowel sounds Rectal Exam - Female: deferred General: Yes bladder normal to palpation External Female Exam: No lesion Speculum Exam - Vagina: normal appearance of the vagina, normal palpation, normal vaginal discharge and not erythematous Speculum Exam - Cervix: normal appearance of the cervix and normal palpation Bimanual exam- vagina & uterus: normal bimanual exam, normal palpation, uterine size normal, bladder normal to palpation, consistency normal and normal palpation Bimanual Exam- Adnexa, other: normal adnexae, no masses and no tenderness Assessment & Plan Assessment & Plan (1) Abnormal uterine bleeding (AUB): Comment: Anemia Code(s): N93.9 - Abnormal uterine and vaginal bleeding, unspecified Category: Medical Plan: Screening mammogram, Co testing done, GC and chlamydia taken , will order repeat CBC, HCG, FSH/LH. Discussed with the patient the different causes of abnormal bleeding including thyroid disorders, uterine and ovarian pathology, endometrial hyperplasia, carcinoma and other potential causes. Discussed with the patient the work up including CBC (to r/o anemia), FSH/LH, endometrial biopsy to r/o endometrial pathology. All questions answered and the patient verbalized understanding. Instructed the patient to schedule an appointment for an endometrial biopsy in 2 weeks. (2) Uterine fibroid: Code(s): D25.9 - Leiomyoma of uterus, unspecified Category: Medical Plan: Discussed with the patient the results of the ultrasound and the size of the myomas. Discussed with the patient risk of myosarcoma and symptoms that are caused by myomas including but not limited to pelvic pain, pressure symptoms, abnormal uterine bleeding. In addition discussed with the patient options of treatment for myomas including: Serial ultrasounds periodically to follow-up on the size of the myoma while targeting the treatment against fibroids related symptoms ( control pills, Mirena IUD, progesterone treatment, GnRH agonist/antagonist, uterine artery embolization or endometrial ablation) versus surgical treatment including hysterectomy and or myomectomy. All pros and cons, risks and benefits of all options were discussed with the patient. The patient understands that delay in surgical treatment in case of myosarcoma can affect her prognosis, after further discussion, the patient decided to think about it and get back to us next visit Orders: Orders Complete Blood Count no Diff Today N93.9 - Abnormal uterine and vaginal bleeding, unspecified Lutenizing Hormone Today N93.9 - Abnormal uterine and vaginal bleeding, unspecified Follicle Stimulating Hormone Today N93.9 - Abnormal uterine and vaginal bleeding, unspecified MM screening mammo BI Today Z12.31 - Encounter for screening mammogram for malignant neoplasm of breast Coding Level of Care Code New Pt Level 3 (64276) Diagnoses Abnormal uterine bleeding (AUB) N93.9 Uterine fibroid D25.9
== END 2024-07-02 10:23 | disposition home or self-care (01) ==
LOC: HO.HWS 09:44
PROVIDERS: PCP Internal Medicine; Visit Provider Obstetrics & Gynecology
DX: N93.9 Abnormal uterine and vaginal bleeding, unspecified (principal); D25.9 Leiomyoma of uterus, unspecified
CPT/HCPCS: 99213

== ENCOUNTER 2024-07-02 09:44 | Outpatient (REF) | payer BC, SELFPAY ==
[2024-07-02 10:59] LABS: Hematocrit 36.8 % (37.0-47.0); Hemoglobin 11.6 g/dl (12.0-16.0); Mean Corpuscular HGB Conc 31.5 g/dl (31.0-35.0); Mean Corpuscular Hemoglobin 25.4 pg (27.0-33.0); Mean Corpuscular Volume 80.5 fL (80.0-98.0); Mean Platelet Volume 8.9 fL (9.4-12.3); Platelet Count 383 X10*3/uL (160-400); Red Blood Count 4.57 X10*6/uL (4.20-5.50); Red Cell Distribution Width 15.5 % (11.0-16.0); White Blood Count 7.7 X10*3/uL (4.8-10.8)
[2024-07-03 02:14] LABS: CT PCR NOT DETECTED (Not Detect.); NG PCR NOT DETECTED (Not Detect.)
[2024-07-03 08:50] LABS: Bacterial Vaginosis PCR NEGATIVE (Negative); Candida Group PCR NOT DETECTED (Not Detect); Candida glab krusei PCR NOT DETECTED (Not Detect); Trichomonas vaginalis PCR NOT DETECTED (Not Detect)
[2024-07-03 09:50] LABS: HPV 16,18/45 See PAP report
[2024-07-03 18:38] LABS: Follicle Stimulating Hormone 16.2 mIU/mL
== END 2024-07-02 09:45 | disposition home or self-care (01) ==
LOC: HO.LAB 09:44
PROVIDERS: PCP Internal Medicine; Visit Provider Obstetrics & Gynecology
DX: N93.9 Abnormal uterine and vaginal bleeding, unspecified (principal); Z11.3 Encounter for screening for infections with a predominantly sexual mode of transmission; Z72.89 Other problems related to lifestyle
CPT/HCPCS: 36415; 81515; 83001; 83002; 85027; 87491; 87591; 87626

== ENCOUNTER 2024-07-02 10:58 | Outpatient (REF) | payer BC, SELFPAY | END 2024-07-02 10:59 | disposition home or self-care (01) | LOC: HO.LNP 10:58 | PROVIDERS: Visit Provider Obstetrics & Gynecology | DX: N93.9 Abnormal uterine and vaginal bleeding, unspecified (principal) | CPT/HCPCS: 88175 ==

== ENCOUNTER 2024-07-22 09:49 | Outpatient (REF) | payer BC, SELFPAY | END 2024-07-22 09:50 | disposition home or self-care (01) | LOC: HO.MAMMO 09:49 | PROVIDERS: PCP Internal Medicine; Visit Provider Obstetrics & Gynecology | DX: Z12.31 Encounter for screening mammogram for malignant neoplasm of breast (principal) | CPT/HCPCS: 77063; 77067 ==

== ENCOUNTER → 2024-07-22 10:15 | Outpatient (BNV) | payer BC, SELFPAY | PROVIDERS: PCP Internal Medicine; Visit Provider Internal Medicine | DX: Z12.31 Encounter for screening mammogram for malignant neoplasm of breast (principal) | CPT/HCPCS: 77063; 77067 ==

== ENCOUNTER 2024-07-23 09:44 | Outpatient (REF) | payer BC, SELFPAY ==
[2024-08-03 10:10] LABS: HPV Genotype 16 Negative (Negative); HPV Genotype 18 Negative (Negative); HPV High Risk Negative (Negative)
== END 2024-07-23 09:45 | disposition home or self-care (01) ==
LOC: HO.LNP 09:44
PROVIDERS: PCP Internal Medicine; Visit Provider Obstetrics & Gynecology
DX: N93.9 Abnormal uterine and vaginal bleeding, unspecified (principal); R87.615 Unsatisfactory cytologic smear of cervix
CPT/HCPCS: 58100; 81025; 87626; 88175; 88305

== ENCOUNTER 2024-08-03 09:57 | Outpatient (AMB) | payer BC, SELFPAY ==
--- NOTE | 2024-08-03 09:59 | MHC.OFFVIS ---
Vital Signs 08/03/24 10:04 Height 5 ft 2 in Weight 259 lb BMI 47.4 Intake Visit Reasons: EMB results Sales Recruiter Required: No Information Interpreted: non-clinical & clinical Accompanied by: Self / Same As Patient Allergies No Known Allergies Allergy (Verified 08/03/24 10:04) HPI Comments Details: The patient is presenting for follow-up to discuss the results of her abnormal uterine bleeding workup and options of treatment. The following workup was done.: H&H= 11.6/36.8 TSH, hCG, GC and chlamydia were negative. FSH/LH 16.2/11, FSH premenopausal range, LH in the menopausal range Endometrial biopsy pathology showed the following: Endometrium, biopsy: Fragments of weakly proliferative endometrium and tubal metaplasia; negative for atypia, hyperplasia or malignancy Co testing was done was negative. Mammogram was negative. Pelvic ultrasound showed the following: UTERUS: The uterus is anteverted. Size: 9.4 x 4.6 x 5.9 cm. Uterine mass: Intramural uterine mass likely fibroid measuring up to 4.8 cm, not significantly changed from prior exam allowing for interobserver variability. Cervix: There are nabothian cysts otherwise Grossly unremarkable. Endometrium: Thickened endometrial thickness measures 1.1 cm abnormal for patient's age and postmenopausal status, cannot rule out pathology. ADNEXA: Normal Right ovary: Normal in size. Tiny echogenic focus questionable significance. Left ovary: Normal in size. Cystic structure likely nabothian cysts measure up to 1.6 cm. Doppler exam: Normal Doppler flow identified in both ovaries. [facility] Medical History Varicose vein of leg Surgical History H/O tubal ligation History of cholecystectomy Family History Father No problems noted. 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 Current occupational exposures/hazards: No Cognitive needs: No Hearing needs: No Vision needs: Yes (reading glasses ) Review of Systems Const All systems reviewed & are unremarkable except as noted in HPI and below Reports as per HPI and Reports no additional complaints GI Reports no additional complaints Reports no additional complaints Assessment & Plan Assessment & Plan (1) Abnormal uterine bleeding (AUB): Comment: Menopause Weakly proliferative endometrium Anemia Code(s): N93.9 - Abnormal uterine and vaginal bleeding, unspecified Category: Medical Plan: Discussed with the patient the results of the work up done and options of treatment including but not limited to BCP's, cyclic Progesterone, Mirena IUD, endometrial ablation and hysterectomy. All pros, cons, risks and benefits of each option were discussed with the patient and the patient decided to go ahead with cyclic Provera, so a more detailed discussion re: Progesterone treatment including mechanism of action, benefits (regular menses, endometrial protection form unopposed estrogen and reduction in the risk of endometrial hyperplasia and/or cancer ...), risks (Thrombosis, mood changes, weight gain, breast soreness, ? increased breast ca, others). Instructions were given to use a back- up method for contraception since this is not a method control, take the medication 1 tablet daily starting day 15-24 and to schedule a 3 months follow-up appointment; patient verbalized understanding and agreed with the plan. (2) Ovarian cyst: Code(s): N83.209 - Unspecified ovarian cyst, unspecified side Category: Medical Plan: Discussed with the patient the complex ovarian cyst by ultrasound. Discussed with the patient the Ultrasound findings, the main limitation of transvaginal ultrasonography alone as a diagnostic tool to distinguish benign from malignant masses relates to its lack of specificity and low positive predictive value for cancer. The differential diagnosis discussed with the patient includes the following but not limited to: benign and malignant gynecological and non-gynecological causes. Laboratory evaluation include UPT and GC/CT , serum tumor marker CA 125 . Discussed with the patient options of treatment including laparoscopy ovarian cystectomy/oophorectomy vs. expectant management with repeat US in repeating pelvic US in 6 weeks from previous US. If the ovarian complex cyst is persistent larger and / or more complex looking, or higher CA 125 will refer to gynecologic Oncology. All pros, cons, risks and benefits of each approach were discussed with the patient including but not limited to a delay in the diagnosis and treatment of ovarian cancer affecting the prognosis; The patient decided to go ahead with expectant management. Instructions given the patient to schedule a follow-up ultrasound appointment. All questions were answered & the patient verbalized understanding and agreed with the plan. (3) Uterine fibroid: Code(s): D25.9 - Leiomyoma of uterus, unspecified Category: Medical Plan: Discussed with the patient the findings on pelvic ultrasound & the risk of myosarcoma; discussed with the patient the options of treatment including expectant management versus hysterectomy; the pros and cons, risks benefits of each approach were discussed with the patient including the fact that in cases of myosarcoma, surgical treatment can lead to early diagnosis and positively affects the prognosis; after further discussion, the patient decided to proceed with expectant management. Will repeat pelvic ultrasound periodically. Instructions given to patient to call in case any of the following occurs: pressure symptoms, abnormal uterine bleeding, pelvic pain; and to schedule a twelve months pelvic ultrasound and a follow-up appointment . All questions answered, the patient verbalized understanding and agreed with the plan . Orders: Orders US pelvic and transvaginal 6 Weeks N83.209 - Unspecified ovarian cyst, unspecified side Medications: New medroxyprogesterone (Provera) start Provera 1 tablet daily from day 15-24 cyclically every months, day 1 being 1st day of menses 10 mg PO DAILY 10 days 30 tabs 0RF Coding Level of Care Code Est Pt Level 3 (38681) Diagnoses Abnormal uterine bleeding (AUB) N93.9 Ovarian cyst N83.209 Uterine fibroid D25.9
[2024-08-03 10:04] VITALS: BMI 47.4
== END 2024-08-03 10:16 | disposition home or self-care (01) ==
LOC: HO.HWS 09:57
PROVIDERS: PCP Internal Medicine; Visit Provider Obstetrics & Gynecology
DX: N93.9 Abnormal uterine and vaginal bleeding, unspecified (principal); N83.209 Unspecified ovarian cyst, unspecified side; D25.9 Leiomyoma of uterus, unspecified
CPT/HCPCS: 99213

== ENCOUNTER → 2024-08-03 09:57 | Outpatient (BNVA) | payer BC, SELFPAY | PROVIDERS: PCP Internal Medicine; Visit Provider Obstetrics & Gynecology ==

== ENCOUNTER 2024-09-16 10:12 | Outpatient (REF) | payer BC, SELFPAY ==
--- NOTE | ~2024-09-16 | US_ITS ---
EXAMINATION: US PELVIS TRANSABDOMINAL AND TRANSVAGINAL HISTORY: N83.209 - Unspecified ovarian cyst, unspecified side COMPARISON: Comparison is made with the prior examination dated 05/11/2024. TECHNIQUE: Transabdominal and endovaginal real-time 2D newby-scale ultrasound was performed. FINDINGS: Uterus: The uterus is normal in size, measuring 9.8 x 5.4 x 5.7 cm. Myometrium has a normal echotexture. Again seen is a left fundal fibroid measuring 4.4 x 3.8 x 4.6 cm (previously 4.4 x 3.4 x 4.8 cm). Endometrium: The endometrial stripe measures 4 mm in thickness. Right ovary: The right ovary measures 2.1 x 1.1 x 2.0 cm. The right ovary is normal in size and again demonstrates a calcification as noted on a prior examination dated 07/25/2022.. Left ovary: The left ovary measures 1.9 x 1.2 x 2.5 cm. The left ovary is normal in size and echotexture. Pelvic fluid: none. US/US pelvic and transvaginal IMPRESSION: 4.4 x 3.8 x 4.6 cm left fundal fibroid without significant change. Electronically signed by: Redd Mckay MD 09/16/2024 12:19 PM EDT
== END 2024-09-16 10:13 | disposition home or self-care (01) ==
LOC: HO.US 10:12
PROVIDERS: PCP Internal Medicine; Visit Provider Obstetrics & Gynecology
DX: N83.209 Unspecified ovarian cyst, unspecified side (principal)
CPT/HCPCS: 76830; 76856

== ENCOUNTER → 2024-09-16 10:14 | Outpatient (BNV) | payer BC, SELFPAY | PROVIDERS: PCP Internal Medicine; Visit Provider Radiology Diagnostic Radiology | DX: D25.9 Leiomyoma of uterus, unspecified (principal) | CPT/HCPCS: 76830; 76856 ==

== ENCOUNTER 2024-11-11 09:56 | Outpatient (AMB) | payer BC, SELFPAY ==
[2024-11-11 09:59] VITALS: BP 112/70; BMI 47.4
--- NOTE | 2024-11-11 09:59 | A.OFFVIS_ITS ---
Vital Signs 11/11/24 09:59 Height 5 ft 2 in Weight 259 lb BMI 47.4 BP 112/70 Intake Visit Reasons: ultrasound and med follow up [employer] Required: No Information Interpreted: non-clinical & clinical Accompanied by: Self / Same As Patient Allergies No Known Allergies Allergy (Verified 11/11/24 10:01) HPI Comments Details: Presenting for Provera follow-up, the patient has not been taking Provera 10 mg p.o. q.d. day 15-24, since she has not had her period Pelvic Ultrasound done in 09/15 showed the following: IMPRESSION: 4.4 x 3.8 x 4.6 cm left fundal fibroid without significant change. PFSH Medical History Varicose vein of leg Surgical History H/O tubal ligation History of cholecystectomy Family History Father No problems noted. 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 Current occupational exposures/hazards: No Cognitive needs: No Hearing needs: No Vision needs: Yes (reading glasses ) Review of Systems Const All systems reviewed & are unremarkable except as noted in HPI and below Reports as per HPI and Reports no additional complaints GI Reports no additional complaints Reports no additional complaints Physical Exam Vital Signs: Last Vital Signs BP 112/70 11/11/24 09:59 BMI result Body Mass Index 47.4 Assessment & Plan Assessment & Plan (1) Abnormal uterine bleeding (AUB): Comment: Menopause Weakly proliferative endometrium Anemia Code(s): N93.9 - Abnormal uterine and vaginal bleeding, unspecified Category: Medical Plan: Recommended for the patient to start Provera 10 mg p.o. q.d. day 15-24 and to call in case of abnormal uterine bleeding. All questions answered, the patient verbalized understanding (2) Myoma: Code(s): D21.9 - Benign neoplasm of connective and other soft tissue, unspecified Category: Medical Plan: Discussed with the patient the findings on pelvic ultrasound & the risk of myosarcoma; in addition reviewed with the patient that malignancy and pre malignancy cannot be ruled out without hysterectomy for pathological evaluation ; furthermore, explained to the patient the limitation of pelvic ultrasound and endometrial biopsy in the setting. Discussed with the patient the options of treatment including expectant management versus hysterectomy; the pros and cons, risks benefits of each approach were discussed with the patient including the fact that in cases of myosarcoma, surgical treatment can lead to early diagnosis and positively affects the prognosis; after further discussion, the patient decided to proceed with expectant management. Will repeat pelvic ultrasound periodically. Instructions given to patient to call in case any of the following occurs: pressure symptoms, abnormal uterine bleeding, pelvic pain; and to schedule a 12- months pelvic ultrasound (order placed) and a follow-up appointment . All questions answered, the patient verbalized understanding and agreed with the plan . Orders: Orders US pelvic and transvaginal 12 Months D21.9 - Benign neoplasm of connective and other soft tissue, unspecified Coding Level of Care Code Est Pt Level 3 (82994) Diagnoses Abnormal uterine bleeding (AUB) N93.9 Myoma D21.9
== END 2024-11-11 10:26 | disposition home or self-care (01) ==
LOC: HO.HWS 09:56
PROVIDERS: PCP Internal Medicine; Visit Provider Obstetrics & Gynecology
DX: N93.9 Abnormal uterine and vaginal bleeding, unspecified (principal); D21.9 Benign neoplasm of connective and other soft tissue, unspecified
CPT/HCPCS: 99213

== ENCOUNTER 2024-11-19 09:07 | Emergency (ER) | payer BC, SELFPAY ==
--- NOTE | ~2024-11-19 | XR_ITS ---
EXAMINATION: XR HIP 1 VIEW RIGHT WITH PELVIS HISTORY: pain COMPARISON: Comparison is made with the prior examination dated 10/28/2018. FINDINGS: A single AP view of the pelvis and two views of the right hip are submitted. There is sclerosis of the left ilium adjacent to the SI joint. There is no fracture or dislocation. Joint space is maintained. However, there is subchondral cyst formation in the acetabulum. Bilateral tubal ligation clips are noted. There are surgical clips in the left inguinal region. XR/XR hip RT w PEL1V IMPRESSION: Mild degenerative changes of the right hip as described. Electronically signed by: Redd Mckay MD 11/19/2024 09:57 AM EDT
--- NOTE | ~2024-11-19 | CT_ITS ---
EXAMINATION: CT ABDOMEN AND PELVIS WITH CONTRAST CLINICAL INFORMATION: Right lower quadrant abdominal pain. COMPARISON: None available. TECHNIQUE: Multidetector volumetric images were obtained from the superior aspect of the liver through the pubic symphysis following administration 85 mL of Omnipaque 350 intravenous contrast. Sagittal and coronal reformatted images were obtained on the technologist's workstation. Oral contrast: No This CT examination was performed using dose optimization techniques as appropriate, variously including the following: *Automated exposure control *Adjustment of mA and/or kV according to patient size (this includes techniques or standardized protocols for targeted exams where dose is matched to indication/reason for exam; i.e. extremities or head) *Use of iterative reconstruction technique FINDINGS: LUNG BASES: Lung bases are clear. Heart size is normal. There are no effusions. Possible small type I hiatus hernia. LIVER, GALLBLADDER, AND BILIARY TREE: There is diffuse fatty infiltration of the liver. There is no focal hepatic lesion. There is no intra or extrahepatic biliary dilatation. The gallbladder is surgically absent. PANCREAS: Unremarkable. SPLEEN: Unremarkable. ADRENAL GLANDS: Unremarkable. KIDNEYS AND URETERS: The kidneys are normal in size, shape, and attenuation. No hydronephrosis or hydroureter. 3 mm nonobstructing calculus right kidney lower pole. No perinephric stranding. BLADDER: Poorly distended but grossly normal. GASTROINTESTINAL TRACT: No acute bowel pathology. The small and large bowel are unremarkable. The appendix is unremarkable. ABDOMINAL WALL: No significant hernia is appreciated. There are surgical clips in the left inguinal region. LYMPH NODES: Normal. VASCULAR: Unremarkable. PELVIC VISCERA: There is a large pedunculated inferior fibroid tumor measuring 6.2 x 5.3 x 4.6 cm. This indents upon the superior urinary bladder. There are probable smaller fibroids. There are no adnexal abnormalities. OSSEOUS STRUCTURES: No lytic or blastic bone lesions. No acute bony abnormality. CT/CT abdomen pelvis w IV con IMPRESSION: 1. No acute findings in the abdomen or pelvis. 2. There is a 3 mm nonobstructing calculus in the right kidney lower pole. 3. There are uterine fibroids. 4. There is diffuse fatty infiltration of the liver. Electronically signed by: Carlos Yuan MD 11/19/2024 10:40 AM EDT
[2024-11-19 09:10] VITALS: BP 141/69; PULSE 61; RESP 18; TEMP 35.8; O2SAT 98; BMI 47.2
--- NOTE | 2024-11-19 09:22 | ED_ITS ---
HPI - General Adult General Chief complaint: Abdominal Pain Stated complaint: abd pain sent from [facility] Time Seen by Provider: 11/19/24 09:22 Source: patient Mode of arrival: ambulatory Limitations: no limitations History of Present Illness ED Provider: Renetta Alva PA-C HPI narrative: Patient is a 54 year old assigned female at with a history of ovarian cysts, asthma, migraines, anemia, and hypothyroidism presenting to the emergency department today with right sided lower abdominal pain, low back pain, and hip pain. Patient states that over the last 4 months she has had right lower abdominal pain, right low back pain, and right hip pain that is significantly worse after walking. Patient states that she spoke to her OBGYN about it and had ultrasounds down that were negative. Patient denies any dizziness, lightheadedness, nausea, vomiting, fever, chills, blurry vision, double vision, loss of vision, chest pain, difficulty breathing, shortness of breath, night sweats, pain with urination, increased urinary frequency, increased urinary urgency, blood in her urine or stool, syncope or a near syncopal episode, recent trauma or falls, bowel incontinence, bladder incontinence, or any other complaints at this time. Onset (ago): month(s) (4) Location: right (lower abdomen, low back, and hip) Pain Consistency: constant Relieving factors: immobilization Exacerbating factors: movement Associated symptoms: denies other symptoms Treatments prior to arrival: none Related Data Previous Rx's ?Medication ?Instructions ?Recorded levothyroxine 125 mcg tablet 125 mcg PO DAILY #90 tabs 04/28/24 sumatriptan succinate 100 mg tablet 100 mg PO BID PRN for migraine #12 04/28/24 tabs medroxyprogesterone 10 mg tablet 10 mg PO DAILY 10 days #30 tabs 11/05/24 (Provera) naproxen 500 mg tablet 500 mg PO BID 7 days #14 tabs 11/19/24 prednisone 20 mg tablet 20 mg PO DAILY 7 days #7 tabs 11/19/24 Allergies Allergy/AdvReac Type Severity Reaction Status Date / Time No Known Allergies Allergy Verified 11/19/24 09:11 Review of Systems 2 Constitutional: Constitutional: Reports no additional constitutional complaints, Denies chills, Denies fever(s) and Denies night sweats Eyes: Eyes: Reports no additional eye complaints, Denies blurry vision, Denies change in vision, Denies diplopia, Denies eye discharge, Denies loss of vision and Denies eye pain ENT: Denies dizziness Cardiovascular: Cardiovascular: Reports no additional cardiovascular complaints, Denies chest pain, Denies lightheadedness, Denies Loss of Consciousness and Denies dyspnea Respiratory: Respiratory: Reports no additional respiratory complaints and Denies dyspnea Gastrointestinal: Gastrointestinal: Reports no additional gastrointestinal complaints, Reports abdominal pain (right lower), Denies melena, Denies hematochezia, Denies change in bowel habits and Denies change in stool character Genitourinary: Genitourinary: Denies hematuria, Denies urinary frequency, Denies dysuria, Denies urinary incontinence, Denies urinary hesitancy and Denies urinary urgency Musculoskeletal: Musculoskeletal: Reports no additional musculoskeletal complaints, Denies numbness and Denies tingling Comments: right hip right sided low back Neurologic: Denies dizziness, Denies loss of vision, Denies numbness and Denies tingling Psychiatric: Psychiatric: Reports no additional psychiatric complaints Endocrine: Endocrine: Reports no additional endocrine complaints Hematologic/Lymphatic: Hematologic/Lymphatic: Reports no additional hematologic/lymphatic complaints Allergic/Immunologic: Allergic/Immunologic: Reports no additional allergic/immunologic complaints [facility] Past Medical History Attestation statement: The following information was validated with the patient. Source: old records reviewed and nursing notes reviewed Medical History Varicose vein of leg Surgical History H/O tubal ligation History of cholecystectomy Family History Family History Father No problems noted. 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 Current occupational exposures/hazards: No Cognitive needs: No Hearing needs: No Vision needs: Yes (reading glasses ) Physical Exam ED Vital Signs: Vital Signs - 24 hr 11/19/24 09:10 11/19/24 09:33 Temperature 96.4 F L 97.1 F Pulse Rate 61 67 Respiratory Rate 18 16 Blood Pressure 141/69 H 128/68 Pulse Oximetry 98 98 Oxygen Delivery Method Room Air Room Air BMI result Body Mass Index 47.2 Const General: cooperative, no acute distress, alert and awake Nutritional Appearance: well nourished Orientation/consciousness: patient oriented x3 HENMT Head: Yes normal to inspection and Yes atraumatic Ears: hearing grossly normal bilaterally and external ears normal General nose exam: Normal external nose present, no nasal discharge noted and no epistaxis Face and sinus: Yes normal facial exam, No abrasion and No laceration Mouth: Normal oral and palatal mucosa present, no drooling and no muffled voice Eyes General: appearance normal, both eyes and all related structures Periorbital: periorbital findings normal Eyelids: Yes eyelids normal Conjunctivae: conjunctivae normal Pupils: Equal, round and reactive pupils present EOM: EOMs intact bilaterally Neck Neck: Yes normal visual inspection, Yes full ROM and Yes no lymphadenopathy Resp Effort & Inspection: normal respiratory effort and able to speak in complete sentences Neuro General: patient oriented x3, moves all extremities and CN's II-XI intact bilaterally Cranial nerves: Yes Equal, round and reactive pupils present Cognition (Neuro): normal cognition Extrem General: Yes normal to inspection, Yes full ROM and Yes capillary refill normal Psych Appearance: grossly normal Mental Status: mental status grossly normal Affect: normal affect Attitude: cooperative Thought process: Normal thought process present Thought content: Normal thought content present Insight: Good insight present (Psych) Medications Administered Discontinued Medications Generic Name Dose Route Start Last Admin Trade Name Juan Joséq PRN Reason Stop Dose Admin Iohexol 100 ml 11/19/24 10:17 11/19/24 10:18 Iohexol 350 Mg/Ml 100 Ml Infus..Btl IV 11/19/24 10:18 85 ml ONCE ONE Administration Medical Decision Making Medical Decision Making MDM Narrative: Patient is a 54 year old assigned female at with a history of ovarian cysts, asthma, migraines, anemia, and hypothyroidism presenting to the emergency department today with right sided lower abdominal pain, low back pain, and hip pain. Patient's physical exam was unremarkable. Patient's blood work was unremarkable. Patient's urine showed no acute process. Patient's right hip x-ray showed evidence of arthritis. Patient's abdomen/pelvis CT scan showed a small kidney stone within the kidney but otherwise unremarkable. Patient's clinical presentation is most consistent with right hip OA vs. right hip bursitis. I explained my physical exam findings as well as all test results to the patient. I answered all questions asked by the patient. I stressed the importance of the patient taking her medication as directed (either prescribed or as the over the counter packaging recommends). I stressed the importance of the patient following up with her primary care provider and an client services specialist. I stressed the importance of the patient returning to the emergency department immediately if her symptoms were to worsen or if she were to develop any dizziness, shortness of breath, difficulty breathing, chest pain, blurry vision, loss of vision, nausea, vomiting, abdominal pain, fever, chills, back pain, or any other complaints. Patient verbalized agreement and understanding with this treatment plan and discharge. Differential Diagnosis Differential Diagnoses: The differential diagnosis associated with the presentation includes Right hip pain Right hip OA Right hip bursitis Abdominal pain Back pain Appendicitis Ovarian cyst Admission/Observation Consideration of admission/observation: Escalation of care including admission/observation considered Patient would have been admitted to the hospital had her work up had any findings where hospital admission was appropriate and her clinical presentation warranted hospital admission. Lab Data [facility] Lab Attestation statement: I reviewed the patient's lab results. My interpretation of these results are in the [facility] Rationale portion of this note. 11/19/24 09:26 11/19/24 09:26 Labs: Lab Results 11/19/24 Range/Units 09:26 WBC 7.4 (4.8-10.8) X10*3/uL RBC 4.79 (4.20-5.50) X10*6/uL Hgb 12.6 (12.0-16.0) g/dl Hct 39.0 (37.0-47.0) % MCV 81.4 (80.0-98.0) fL MCH 26.3 L (27.0-33.0) pg MCHC 32.3 (31.0-35.0) g/dl RDW 15.7 (11.0-16.0) % Plt Count 370 (160-400) X10*3/uL MPV 9.1 L (9.4-12.3) fL Immature Gran % (Auto) 0.3 (0.0-0.4) % Neut % (Auto) 49.9 (45-73) % Lymph % (Auto) 40.4 H (20-40) % [place] % (Auto) 6.3 (2-11) % Eos % (Auto) 2.0 (0-4) % Baso % (Auto) 1.1 (0-2) % Lymph # (Auto) 3.0 (1.2-4.9) X10*3/uL [place] # (Auto) 0.5 (0.1-1.2) X10*3/uL Eos # (Auto) 0.2 (0.0-0.4) X10*3/uL Baso # (Auto) 0.1 (0.0-0.2) X10*3/uL Abs Immat Gran (auto) 0.02 (0.00-0.03) X10*3/uL Absolute Neuts (auto) 3.7 (2.0-8.3) x10*3/uL Absolute Nucleated RBC 0.000 (0.0-0.012) X10*3/uL Nucleated RBC % (auto) 0.0 (0.0-0.2) /100WBC Sodium 143 (135-145) mmol/L Potassium 4.0 (3.3-5.1) mmol/L Chloride 107 (96-108) mmol/L Carbon Dioxide 28 (22-29) mmol/L Anion Gap 12 (12-20) BUN 9 (9-16) mg/dL Creatinine 1.02 (0.5-1.4) mg/dL Estim Creat Clear Calc 77.4 Estimated GFR 57 Random Glucose 94 (60-115) mg/dL Calcium 9.8 (8.4-10.2) mg/dL Total Bilirubin 0.4 (0.0-1.0) mg/dL AST 64 H (5-31) U/L ALT 70 H (0-31) U/L Alkaline Phosphatase 116 (39-117) U/L Total Protein 8.1 H (6.5-8.0) g/dL Albumin 4.6 (3.5-5.0) g/dL Beta HCG, Quant 7 mIU/mL Urine Color Yellow Urine Appearance Clear Urine pH 6.5 (5.0-9.0) Ur Specific [place] 1.015 (1.005-1.025) Urine Protein Negative (Neg-Trace) mg/dL Urine Glucose (UA) Negative (Negative) mg/dL Urine Ketones Negative (Negative) mg/dL Urine Blood Negative (Negative) Urine Nitrite Negative (Negative) Ur Leukocyte Esterase Negative (Negative) Independent Interpretation I performed an independent interpretation of an: Plain X-Ray and CT Scan Interpretation: My interpretation is in agreement with the radiologist's impression of these imaging studies. L EXAMINATION: XR HIP 1 VIEW RIGHT WITH PELVIS HISTORY: pain COMPARISON: Comparison is made with the prior examination dated 10/28/2018. FINDINGS: A single AP view of the pelvis and two views of the right hip are submitted. There is sclerosis of the left ilium adjacent to the SI joint. There is no fracture or dislocation. Joint space is maintained. However, there is subchondral cyst formation in the acetabulum. Bilateral tubal ligation clips are noted. There are surgical clips in the left inguinal region. XR/XR hip RT w PEL1V IMPRESSION: Mild degenerative changes of the right hip as described. Electronically signed by: Redd Mckay MD 11/19/2024 09:57 AM EDT Dictated By: Redd Mckay MD Signed By: Electronically signed by Redd Mckay MD 11/19/24 0957 Report Number: [id number]: Total DLP = 922.00 mGy-cm EXAMINATION: CT ABDOMEN AND PELVIS WITH CONTRAST CLINICAL INFORMATION: Right lower quadrant abdominal pain. COMPARISON: None available. TECHNIQUE: Multidetector volumetric images were obtained from the superior aspect of the liver through the pubic symphysis following administration 85 mL of Omnipaque 350 intravenous contrast. Sagittal and coronal reformatted images were obtained on the technologist's workstation. Oral contrast: No This CT examination was performed using dose optimization techniques as appropriate, variously including the following: *Automated exposure control *Adjustment of mA and/or kV according to patient size (this includes techniques or standardized protocols for targeted exams where dose is matched to indication/reason for exam; i.e. extremities or head) *Use of iterative reconstruction technique FINDINGS: LUNG BASES: Lung bases are clear. Heart size is normal. There are no effusions. Possible small type I hiatus hernia. LIVER, GALLBLADDER, AND BILIARY TREE: There is diffuse fatty infiltration of the liver. There is no focal hepatic lesion. There is no intra or extrahepatic biliary dilatation. The gallbladder is surgically absent. PANCREAS: Unremarkable. SPLEEN: Unremarkable. ADRENAL GLANDS: Unremarkable. KIDNEYS AND URETERS: The kidneys are normal in size, shape, and attenuation. No hydronephrosis or hydroureter. 3 mm nonobstructing calculus right kidney lower pole. No perinephric stranding. BLADDER: Poorly distended but grossly normal. GASTROINTESTINAL TRACT: No acute bowel pathology. The small and large bowel are unremarkable. The appendix is unremarkable. ABDOMINAL WALL: No significant hernia is appreciated. There are surgical clips in the left inguinal region. LYMPH NODES: Normal. VASCULAR: Unremarkable. PELVIC VISCERA: There is a large pedunculated inferior fibroid tumor measuring 6.2 x 5.3 x 4.6 cm. This indents upon the superior urinary bladder. There are probable smaller fibroids. There are no adnexal abnormalities. OSSEOUS STRUCTURES: No lytic or blastic bone lesions. No acute bony abnormality. CT/CT abdomen pelvis w IV con IMPRESSION: 1. No acute findings in the abdomen or pelvis. 2. There is a 3 mm nonobstructing calculus in the right kidney lower pole. 3. There are uterine fibroids. 4. There is diffuse fatty infiltration of the liver. Electronically signed by: Carlos Yuan MD 11/19/2024 10:40 AM EDT Dictated By: Carlos Yuan MD Signed By: Electronically signed by Carlos Yuan MD 11/19/24 104 Radiology Impression Discussion of test interpretation with radiology: I have reviewed the radiologist's reading. Prescription Management I considered prescription management with: Pain Medication (patient prescribed pain medication) Discharge Plan Discharge Clinical Impression: Arthritis of hip, Abdominal pain, Back pain Patient Disposition: Home, Self-Care Instructions: Osteoarthritis (DC), Abdominal Pain (ED), Back Pain (ED) Additional Instructions: Your x-ray of the right hip showed arthritis. Your CT scan of the abdomen/pelvis showed a kidney stone that is small (3mm) and very high up. I suspect your pain is primarily from the right hip arthritis. The medication I prescribed you can cause stomach upset - make sure you eat with them and you may take over the counter ant acids like omeprazole or famotidine while you are on them. Follow up with your primary care provider and an orthopedic provider. Return to the emergency department immediately if your symptoms worsen or if you develop any numbness, tingling, dizziness, shortness of breath, difficulty breathing, chest pain, blurry vision, loss of vision, nausea, vomiting, abdominal pain, fever, chills, back pain, or any other complaints. Please see the information below about our Patient Portal. If you are not yet enrolled in the [facility] Patient Portal, you will receive an enrollment email invitation following your visit to any [facility] setting. You may also self-enroll in the Patient Portal by visiting our website: [email or web address] The following information is required to access the Patient Portal: - Your [facility] Medical Record Number - Your personal home email address (must match what is in your electronic medical record, Registration staff can assist with this) - Name - Date of Capabilities of the Patient Portal: - Message some providers - View upcoming appointments - Access your health summary, medical history, and visit history - View current conditions and allergies - View procedure and lab results - View your medications, including guidelines, side effects, and precautions - Complete pre-appointment questionnaires requested by your provider - Ready summary reports of your office visits and procedures To access the Patient Portal Mobile [employer], follow these directions: - Search [employer] in the [employer] Store or [employer] Store - Download the [employer] - Search for [facility] - Enter your login/password Prescriptions: New prednisone 20 mg tablet 20 mg PO DAILY 7 Days Qty: 7 0RF naproxen 500 mg tablet 500 mg PO BID 7 Days Qty: 14 0RF No Action medroxyprogesterone [Provera] 10 mg tablet 10 mg PO DAILY 10 Days Qty: 30 0RF Rx Instructions: start Provera 1 tablet daily from day 15-24 cyclically every months, day 1 being 1st day of menses levothyroxine 125 mcg tablet 125 mcg PO DAILY Qty: 90 3RF sumatriptan succinate 100 mg tablet 100 mg PO BID PRN (Reason: for migraine) Qty: 12 6RF Referrals: [facility] [Provider Group] (Call to establish and follow up with the orthopedic team about your right hip pain. ) Louisa Chavez MD [Primary Care Provider] - Print Language: Mexican
[2024-11-19 09:33] VITALS: BP 128/68; PULSE 67; RESP 16; TEMP 36.2; O2SAT 98
[2024-11-19 09:34] LABS: MANUAL DIFF FLAG NO
[2024-11-19 09:36] LABS: Appearance Urine Clear; Basophils Absolute Auto 0.1 X10*3/uL (0.0-0.2); Basophils Percent Auto 1.1 % (0-2); Color Urine Yellow; Eosinophils Absolute Auto 0.2 X10*3/uL (0.0-0.4); Glucose Urine UA Negative (Negative); Hemoglobin 12.6 g/dl (12.0-16.0); Imm Gran Abs Auto 0.02 X10*3/uL (0.00-0.03); Imm Gran Pct Auto 0.3 % (0.0-0.4); Leukocyte Esterase Urine Negative (Negative); Lymphocytes Percent Auto 40.4 % (20-40); Mean Corpuscular HGB Conc 32.3 g/dl (31.0-35.0); Mean Corpuscular Hemoglobin 26.3 pg (27.0-33.0); Mean Corpuscular Volume 81.4 fL (80.0-98.0); Mean Platelet Volume 9.1 fL (9.4-12.3); Monocytes Absolute Auto 0.5 X10*3/uL (0.1-1.2); Monocytes Percent Auto 6.3 % (2-11); Neutrophils Absolute Auto 3.7 x10*3/uL (2.0-8.3); Neutrophils Percent Auto 49.9 % (45-73); Nitrite Urine Negative (Negative); PH 6.5 (5.0-9.0); Platelet Count 370 X10*3/uL (160-400); Red Blood Count 4.79 X10*6/uL (4.20-5.50); Red Cell Distribution Width 15.7 % (11.0-16.0); Specific Gravity - Urine 1.015 (1.005-1.025); Urine Blood Negative (Negative); Urine Ketones Negative (Negative); Urine Protein Negative (Neg-Trace); White Blood Count 7.4 X10*3/uL (4.8-10.8)
[2024-11-19 09:54] LABS: Alanine Aminotransferase 70 U/L (0-31); Albumin Level 4.6 g/dL (3.5-5.0); Alkaline Phosphatase 116 U/L (39-117); Anion Gap 12 (12-20); Aspartate Amino Transferase 64 U/L (5-31); Bilirubin Total 0.4 mg/dL (0.0-1.0); Blood Urea Nitrogen 9 mg/dL (9-16); Calcium 9.8 mg/dL (8.4-10.2); Carbon Dioxide 28 mmol/L (22-29); Chloride 107 mmol/L (96-108); Creatinine Clr Calc Pharmacy 77.4; Estimated Glomerular Filt Rate 57; Glucose Random 94 mg/dL (60-115); Sodium 143 mmol/L (135-145); Total Protein 8.1 g/dL (6.5-8.0)
[2024-11-19 10:00] LABS: HCG Quantitative 7 mIU/mL
--- NOTE | 2024-11-19 10:09 | PC.NURSE ---
pt is siting at edge of bed in no distresss. 20 ga iv placed in lac for iv contrast ct.
[2024-11-19] MEDS: iohexoL 350 MG/ML 100 ML INFUS..BTL IV (10:18)
[2024-11-19 11:14] VITALS: BP 127/47; PULSE 58; RESP 16; TEMP 36.6; O2SAT 100
== END 2024-11-19 11:17 | disposition home or self-care (01) ==
PROVIDERS: Emergency Provider Emergency Medicine Emergency Medical Services; PCP Internal Medicine
DX: M16.11 Unilateral primary osteoarthritis, right hip (principal); R10.2 Pelvic and perineal pain; M54.50 Low back pain, unspecified; Z79.899 Other long term (current) drug therapy
CPT/HCPCS: 36415; 73502; 74177; 80053; 81003; 84702; 85025; 99283; 99284; Q9967

== ENCOUNTER → 2024-11-19 09:34 | Outpatient (BNV) | payer BC, SELFPAY | PROVIDERS: PCP Internal Medicine; Visit Provider Radiology Diagnostic Radiology | DX: R10.31 Right lower quadrant pain (principal) | CPT/HCPCS: 73502; 74177 ==

== ENCOUNTER 2025-03-16 13:45 | Outpatient (AMB) | payer BC, SELFPAY ==
--- NOTE | 2025-03-16 14:05 | A.OFFPC_ITS ---
Vital Signs 03/16/25 14:14 Height 5 ft 2 in Weight 260 lb 6 oz BMI 47.6 BP 128/84 Blood Pressure Location Rt brachial Position Sitting Respiration 14 Pulse 65 Pulse Source Pulse Oximeter Temp 98.1 F Temp Source Oral Pulse Oximetry (%) 97 Oxygen Delivery Method Room Air Intake Visit Reasons: Sleep apnea Intake Note: Discuss sleep apnea Magnetic Healer Required: No Allergies No Known Allergies Allergy (Verified 11/19/24 09:11) Tobacco use date assessed: 03/16/25 Dental Screening Dental Screen Date: 04/28/24 HPI HPI Comments History of Present Illness Details 54 year old female with a past medical h istory of migraine, asthma, hypothyroid, KAMRYN presenting for follow up Asthma: well controlled off medication. Previously on advair, singular and prn albuterol Migraine: stable on prn imitrex Hypothyroid: on levothyroxine 125mcg daily. ZITA-had sleep study severe AHI 33.4 cpap 4-20 H20 with heated humidity. She was required to have testing through work. 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 She has difficulty flexing it. No known injury. History of CTS Declines mammogram Ok for cologuard. Declines colonoscopy ROS see HPI PHYSICAL EXAM: GENERAL: Alert and oriented x 3. NAD EYES: EOMI. Anicteric. HENT: Moist mucous membranes. No scleral icterus. No cervical lymphadenopathy. LUNGS: Clear to auscultation bilaterally. CARDIOVASCULAR: Regular rate and rhythm. No murmur. No JVD. ABDOMEN: Soft, non-tender +bs EXTREMITIES: No edema. Non-tender. SKIN: No rashes or lesions. Warm. NEUROLOGIC: No focal neurological deficits. CN II-XII grossly intact PSYCHIATRIC: Cooperative. Appropriate mood and affect COUNTS INCLUDE 234 BEDS AT THE [facility] Medical History Thumb pain Varicose vein of leg Surgical History H/O tubal ligation History of cholecystectomy Family History Father No problems noted. 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 1. Little interest or pleasure in doing things: not at all 2. Feeling down, depressed, or hopeless: not at all 3. Trouble falling or staying asleep, or sleeping too much: not at all 4. Feeling tired or having little energy: not at all 5. Poor appetite or overeating: not at all 6. Feeling bad about yourself - or that you are a failure or have let yourself or your family down: not at all 7. Trouble concentrating on things, such as reading the newspaper or watching television: not at all 8. Moving or speaking so slowly that other people could have noticed. Or the opposite - being so fidgety or restless that you have been moving around a lot more than usual: not at all 9. Thoughts that you would be better off or of hurting yourself in some way: not at all Total score: 0 Depression Screening Interpretation: Negative Depression Screening Done: Yes 93606 - PHQ-9 Billing: Yes Source: Developed by Drs. Redd Luevano, Adriana Truong, Javier Cruz and colleagues, with an educational jin from [email or web address]. Thrive Questionnaire Date Thrive assessed: 11/02/24 I am a: Patient What is your living situation today?: I have a steady place to live Within the past 12 months, did the food you bought not last and you didn't have the money to get more?: Never true Within the past 12 months, did you worry whether your food would run out before you got money to buy more?: Never true Do you have trouble paying for medicines?: No Do you have trouble getting transportation to medical appointments?: No Do you have trouble paying your heating and electricity bill?: No Do you have trouble taking care of your child, family member or friend?: No Do you have trouble with day-to-day activities such as bathing, preparing meals, shopping, managing finances, etc.?: No Are you currently unemployed and looking for a job?: No Are you interested in more education?: No Please select the resources that you would like help with: None Currently or been in a relationship where the following occur: No concerns reported THRIVE Score: 0 KEARA-7 AMB Questionnaire KEARA-7 Date KEARA - 7 assessed: 04/09/22 Source: Developed by Drs. Redd Luevano, Adriana Truong, Javier Cruz and colleagues, with an educational jin from [email or web address]. Physical exam (Primary Care) Vital Signs: Last Vital Signs Temp 98.1 F 03/16/25 14:14 Pulse 65 03/16/25 14:14 Resp 14 03/16/25 14:14 BP 128/84 03/16/25 14:14 Pulse Ox 97 03/16/25 14:14 Oxygen Delivery Method Room Air 03/16/25 14:14 BMI result Body Mass Index 47.6 Tobacco/Smoking Status: Tobacco use Status Tobacco use date assessed 03/16/25 03/16/25 14:13 Patient Tobacco Use Status Never used Tobacco 03/16/25 14:05 e-Cigarette/Vaping Use Never Used 03/16/25 14:05 PHQ-9: PHQ-9 Score PHQ-9: Total score 0 03/17/25 13:43 Depression Screening Interpretation: Negative Thrive Assessment: Date of Thrive Assessment Date Thrive assessed 11/02/24 03/16/25 14:05 Currently or been in a relationship where the following occur: No concerns reported Coding Level of Care Code Est Pt Level 4 (70331) Diagnoses ZITA (obstructive sleep apnea) G47.33 Hypothyroidism (acquired) E03.9 Elevated glucose R73.09 Pain of right thumb M79.644 Laterality: right Additional Codes PHQ-9 - 95383 - PHQ-9 Billing: Yes ([id number]) Assessment & Plan Assessment & Plan (1) ZITA (obstructive sleep apnea): Code(s): G47.33 - Obstructive sleep apnea (adult) (pediatric) Category: Medical (2) Hypothyroidism (acquired): Code(s): E03.9 - Hypothyroidism, unspecified Category: Medical (3) Elevated glucose: Code(s): R73.09 - Other abnormal glucose Category: Medical (4) Thumb pain: Code(s): M79.646 - Pain in unspecified finger(s) Category: Medical Qualifiers: Laterality: right Qualified Code(s): M79.644 - Pain in right finger(s) Plan ZITA-cpap ordered. referral to sleep medicine Thumb pain, swelling-refer hand. prednisone and emla ordered Orders: Referrals Sleep Medicine Referral G47.33 - Obstructive sleep apnea (adult) (pediatric) Orthopedics Referral M79.646 - Pain in unspecified finger(s) Medications: New CPAP (CPAP Machine/Device) with mask and tubing. Humidified continuous qhs. Auto [id number] 1 ea 0RF G47.33 - Obstructive sleep apnea (adult) (pediatric) CPAP (CPAP Machine/Device) with facemask tubing continuous qhs. Auto [id number] 1 ea 0RF G47.33 - Obstructive sleep apnea (adult) (pediatric) CPAP (CPAP Machine/Device) with mask and tubing. Humidified continuous qhs. Auto [id number] 1 ea 0RF G47.33 - Obstructive sleep apnea (adult) (pediatric) prednisone 40 mg (2 x 20 mg) PO DAILY 10 tabs 0RF lidocaine-prilocaine 2.5-2.5 % 1 appl topical BID PRN 30 grams 0RF thumb pain
[2025-03-16 14:14] VITALS: BP 128/84; PULSE 65; RESP 14; TEMP 36.7; O2SAT 97; BMI 47.6
--- OUTSIDE RECORDS SUMMARY | 2025-03-16 16:54 | XMS_ITS | Clinical Summary ---
Author Organization [facility] Address [address] [place] [address] [place] [address] Phone Care Team Providers Care Bridge Engineer Name Role Phone Pcp, Unknown Primary Care Provider Unavailabl e Encounters Date Type Department Care Team Description 03/09/2025 Telephone [facility] Internal Medicine [address] [place] [address] Pcp, Unknown Forms & Paperwork 02/04/2025 Telephone [facility] Internal Medicine [address] [place] [address] Pcp, Unknown New Patient from Last 3 Months Social History Tobacco Use Types Packs/Day Years Used Date Smoking Tobacco: Never Assessed Education Answer Date Recorded Are you interested in more education? Not on nilda e 02/18/2025 Are you concerned about learning? Not on file 02/18/2025 No 02/18/2025 No 02/18/2025 Digital Access Answer Date Recorded No 02/18/2025 No 02/18/2025 Reliable internet access at home? Not on file 02/18/2025 Device with a working camera? Not on file Comments Unknown Sex and Gender Information Value Date Recorded Sex Assigned at Not on file Legal Sex Female 1:00 PM EDT Gender Identity Not on file Sexual Orientation Not on file Plan of Treatment Upcoming Encounters Date Type Department Care Team ([facility] Contact Info) Description 04/16/2025 11:20 AM EDT Office Visit [facility] Internal Medicine [address] [place] [address] Destini Rosales PA-C [address] [place] [address] [email or web address] Health Maintenance Due Date Last Done Comments Adult Td,Tdap Booster 1971 LIPID PANEL 1971 DEPRESSION SCREENING 1983 SMOKING Hx and SMOKELESS TOB ACCO SCREENING 1984 HEPATITIS C SCREENING 1989 HIV ONE-TIME SCREENING (18-6 5 YEARS) 1989 PAP SMEAR 1992 MAMMOGRAM 2011 COLOGUARD 2016 COLONOSCOPY 2016 COLORECTAL CANCER SCREENING 2016 FIT TEST 2016 FOBT 2016 SIGMOIDOSCOPY 2016 VIRTUAL COLONOSCOPY 2016 PNEUMOCOCCAL VACCINES (50+ y ears) (1 of 1 - PCV) 2021 ZOSTER VACCINES (1 of 2) 2021 INFLUENZA VACCINE (#1) 2025 COVID-19 VACCINE (1 - 2023-2 5 season) 2025 HEPATITIS A VACCINES Aged Out No long er eligible based on patient's age to complete this topic HIB VACCINES Aged Out No longer eligi ble based on patient's age to complete this topic MENINGOCOCCAL VACCINES (ACWY) Aged Out No longer eligible based on patient's age to complete this topic MENINGOCOCCAL VACCINES (B) Aged Out N o longer eligible based on patient's age to complete this topic Medical Devices Not on file [facility] [address] [place] [address] PPO EPO PPO [place] [address] [place] [address] [place] [address] [place] [address] PPO EPO Care Teams Bridge Engineer Relationship Specialty Start Date End Date Pcp, Unknown PCP - General 03/13/24 Additional Source Comments The information contained in this document represents components of the legal health record. It is not the complete legal health record.[facility]
== END 2025-03-16 14:33 | disposition home or self-care (01) ==
LOC: HO.HMCFM 13:46
PROVIDERS: PCP Internal Medicine; Visit Provider Internal Medicine
DX: G47.33 Obstructive sleep apnea (adult) (pediatric) (principal); E03.9 Hypothyroidism, unspecified; R73.09 Other abnormal glucose; M79.644 Pain in right finger(s)

== ENCOUNTER → 2025-03-16 13:45 | Outpatient (BNVA) | payer BC, SELFPAY | PROVIDERS: PCP Internal Medicine; Visit Provider Internal Medicine | DX: G47.33 Obstructive sleep apnea (adult) (pediatric) (principal); E03.9 Hypothyroidism, unspecified; R73.09 Other abnormal glucose; M79.644 Pain in right finger(s); J45.909 Unspecified asthma, uncomplicated; G43.909 Migraine, unspecified, not intractable, without status migrainosus; Z79.899 Other long term (current) drug therapy; Z13.31 Encounter for screening for depression | CPT/HCPCS: 96127 ==

== ENCOUNTER 2025-03-23 16:06 | Outpatient (REF) | payer BC, SELFPAY ==
--- OUTSIDE RECORDS SUMMARY | 2025-03-23 17:07 | XMS_ITS | Clinical Summary ---
Author Organization [facility] Address [address] [place] [address] [place] [phone] Phone Care Team Providers Care Pmo Project Manager Name Role Phone Pcp, Unknown Primary Care Provider Unavailabl e Encounters Date Type Department Care Team Description 03/09/2025 Telephone [facility] Internal Medicine [address] [place] [address] Pcp, Unknown Forms & Paperwork 02/04/2025 Telephone [facility] Internal Medicine [address] [place] [address] Pcp, Unknown New Patient from Last 3 [...] Upcoming Encounters Date Type Department Care Team ([facility] Contact Info) Description 04/16/2025 11:20 AM EDT Office Visit [facility] Internal Medicine [address] [place] [address] Destini Rosales PA-C [address] [place] [address] [email or web address] Health Maintenance Due [...] topic Medical Devices Not on file [facility] [place] [address] [place] [address] PPO EPO PPO EPO [place] [address] [place] [address] [place] [address] [place] [address] PPO EPO Care Teams Pmo Project Manager Relationship Specialty Start Date End Date Pcp, Unknown PCP - General 03/13/24 Additional Source Comments The information contained in this document represents components of the legal health record. It is not the complete legal health record.[facility]
== END 2025-03-23 16:07 | disposition home or self-care (01) ==
LOC: HO.HOSX 16:06
PROVIDERS: Visit Provider Orthopaedic Surgery
DX: Z13.89 Encounter for screening for other disorder (principal)

== ENCOUNTER 2025-03-24 10:57 | Outpatient (REF) | payer BC, SELFPAY ==
--- NOTE | ~2025-03-24 | XR_ITS ---
EXAMINATION: XR HAND 3 OR MORE VIEWS RIGHT HISTORY: M79.641 - Pain in right hand COMPARISON: There are no prior studies available for comparison. FINDINGS: Three views of the right hand are submitted. Osseous mineralization is normal. There is no fracture or dislocation. The joint spaces are preserved. The soft tissues are unremarkable. XR/XR hand RT min 3V IMPRESSION: Unremarkable examination of the right hand. Electronically signed by: Redd Mckay MD 03/24/2025 11:39 AM EDT
== END 2025-03-24 10:58 | disposition home or self-care (01) ==
LOC: HO.HOSX 10:57
PROVIDERS: PCP Internal Medicine; Visit Provider Orthopaedic Surgery
DX: M65.311 Trigger thumb, right thumb (principal)
CPT/HCPCS: 73130

== ENCOUNTER 2025-03-24 10:57 | Outpatient (AMB) | payer BC, SELFPAY ==
--- NOTE | 2025-03-24 11:22 | MHC.OFFVIS ---
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 Her PCP placed her on a temporary Rx of Prednisone but patient has not started taking them yet. States her thumb is catching and locking for the last 1-2 months. States this is very painful. She has to write alot at work and this is very painful. Denies injury, numbness or tingling. 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 She complains of pain & swelling of her right thumb, along with limited ROM. She complains of painful locking & catching of her thumb ~1-2 months ago Denies any fall or injury She denies any numbness or tingling. 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 [facility] Medical History Thumb pain Varicose vein of leg Surgical History H/O tubal ligation History of cholecystectomy Family History Father No problems noted. 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 Current occupational exposures/hazards: No Cognitive needs: No Hearing needs: No Vision needs: Yes (reading glasses ) Review of Systems Const All systems reviewed & are unremarkable except as noted in HPI and below Physical Exam Vital Signs: BMI result Body Mass Index 47.5 Const General: cooperative, healthy appearing and no acute distress Orientation/consciousness: patient oriented x3 HEENT Head: Yes normocephalic and Yes atraumatic Eyes EOM: EOMs intact bilaterally Resp Effort & Inspection: normal respiratory effort and able to speak in complete sentences Cardio Jugular venous distension: no JVD Skin General skin exam: turgor normal Rashes: no rashes Neuro General: patient oriented x3 Extrem Other: Evaluation of Right Upper Extremity: The patient is alert, oriented, and in no acute distress Neuro: Median, Ulnar, Radial nerves motor and sensory intact and sensation is normal to the tips of all digits Vascular: Cap refill brisk ROM: She can bring her fingers closed to a fist and back into extension Her thumb is currently locked in extension. She does not want to flex it because when it gets locked it is very painful. Tender over the thumb a1 jose alfredo Skin: No lacerations or abrasions. General: No Ecchymosis. No Erythema or evidence of infection. Radiographs: 3 views of the right hand were taken and viewed by me today in clinic. They show no fractures, dislocations, or appreciable arthritic changes Psych Appearance: grossly normal Affect: normal affect Attitude: cooperative Assessment & Plan Assessment & Plan (1) Trigger thumb, right thumb: Code(s): M65.311 - Trigger thumb, right thumb Category: Medical Plan Assessment & Plan: 1. Right trigger thumb Currently locked in extension I educated her about this condition I discussed operative and non-operative treatment options The patient would like to proceed with surgery The risks and benefits of operative treatment were discussed with the patient and the patient wishes to proceed with surgery. These risks include, but are not limited to risk of damage to blood vessels, nerves, tendons, infection, recurrence, incomplete relief of preoperative symptoms, persistent pain, possible need for further surgery and the risks associated with regional blocks and anesthesia. The plan is to take the patient to the operating room sometime in the next few weeks for the following procedures: 1. Right trigger thumb release, under local All of the preoperative paperwork including the consent was reviewed today. All the patient's questions were answered. The patient understands that they will be contacted by our operations scheduler soon to schedule this procedure She denies Diabetes, blood thinners, asthma, heart, lung, kidney issues Scribed for Rianna Burns MD by Simone Richey medical coding specialist, on 03/24/25 at 11:30 AM, EST. Orders: Orders XR hand RT min 3V Today M79.641 - Pain in right hand Coding Level of Care Code New Pt Level 4 (16732) Diagnoses Trigger thumb, right thumb M65.311
[2025-03-24 11:28] VITALS: BMI 47.5
--- OUTSIDE RECORDS SUMMARY | 2025-03-24 12:30 | XMS_ITS | Clinical Summary ---
Author Organization [facility] Address [address] [place] [address] [place] [phone] Phone Care Team Providers Care Loan Reviewer Name Role Phone Pcp, Unknown Primary Care Provider Unavailabl e Encounters Date Type Department Care Team Description 03/09/2025 Telephone [facility] Internal Medicine [address] [place] [address] Pcp, Unknown Forms & Paperwork 02/04/2025 Telephone [facility] Internal Medicine [address] [place] [address] Pcp, Unknown New Patient from Last 3 [...] Upcoming Encounters Date Type Department Care Team ([facility] Contact Info) Description 04/16/2025 11:20 AM EDT Office Visit [facility] Internal Medicine [address] [place] [address] Destini Rosales PA-C [address] [place] [address] [email or web address] Health Maintenance Due Date Last Done Comments [...] topic Medical Devices Not on file [facility] [place] [address] [place] [address] PPO EPO PPO EPO [place] [address] [place] [address] [place] [address] [place] [address] PPO EPO Care Teams Loan Reviewer Relationship Specialty Start Date End Date Pcp, Unknown PCP - General 03/13/24 Additional Source Comments The information contained in this document represents components of the legal health record. It is not the complete legal health record.[facility]
== END 2025-03-24 11:57 | disposition home or self-care (01) ==
LOC: HO.HOS 10:58
PROVIDERS: PCP Internal Medicine; Visit Provider Orthopaedic Surgery
DX: M65.311 Trigger thumb, right thumb (principal)
CPT/HCPCS: 99204

== ENCOUNTER → 2025-03-24 11:15 | Outpatient (BNV) | payer BC, SELFPAY | PROVIDERS: PCP Internal Medicine; Visit Provider Radiology Diagnostic Radiology | DX: M79.641 Pain in right hand (principal) | CPT/HCPCS: 73130 ==

== ENCOUNTER 2025-03-31 10:43 | Outpatient (AMB) | payer BC, SELFPAY ==
[2025-03-31 10:57] VITALS: BP 138/92; PULSE 95; O2SAT 99; BMI 48.3
--- NOTE | 2025-03-31 10:57 | A.OFFVIS_ITS ---
Vital Signs 03/31/25 10:57 Height 5 ft 2 in Weight 264 lb BMI 48.3 BP 138/92 H Blood Pressure Location Lt brachial Position Sitting Pulse 95 Pulse Source Pulse Oximeter Pulse Oximetry (%) 99 Oxygen Delivery Method Room Air Intake Visit Reasons: INP-ZITA Intake Note: Patient presents HAND MODEL ZITA. Had sleep study in chart(AHI 33.4, AMANDA 70%. Apap 4- 20cm with heated humidity). She was required to have testing through work. 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 Waiting on CPAP Accompanied by: Self / Same As Patient Allergies No Known Allergies Allergy (Verified 03/31/25 11:00) HPI Comments Details: 54 year old female presents for an evaluation of her sleep apnea. PSG c/w AHI of 33.4 oxygen desaturation to <88% for over 5 mins. Will start her on cpap [id number] and monitor for compliance. 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 She snores loudly, denies gasping for air and witnessed apneas. She has migraines 2x a month, lasting 3 hours with l. eye pain radiating to the back of her head and l. ear pulsating pain 8/10 in severity, with photophobia/ phonophobia, smells are tri ggers. Denies dizziness, vertigo, balance or gait instability. Denies vision changes. She takes a sumatriptan 100mg po and it goes away with in 2 hours. She denies bruxism and jaw pain. She has r. 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 She had an old an injury while removing laundry from the dryer and twisted her back the wrong way. She denies RLS symptoms, paresthesias. Mood and Memory is stable. Diet is poor she has no time to meal prep, and has hypothyroidism, takes levothyroxine 125 mcg. She gets so fatigued by the end of the day after complet ing errands, she eats dinner very late and notices she is eating fast food or eating out all the time. Her BMI is elevated to 48.3 and would like to start a GLP-1 or Zepbound. I will refer her to weight management. She stays well hydrated. She denies smoking or drinking alcohol. REPLACED BY [facility] Medical History Thumb pain Varicose vein of leg Surgical History H/O tubal ligation History of cholecystectomy Family History Father No problems noted. 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 Current occupational exposures/hazards: No Cognitive needs: No Hearing needs: No Vision needs: Yes (reading glasses ) Physical Exam Vital Signs: Last Vital Signs Pulse 95 03/31/25 10:57 BP 138/92 H 03/31/25 10:57 Pulse Ox 99 03/31/25 10:57 Oxygen Delivery Method Room Air 03/31/25 10:57 BMI result Body Mass Index 48.3 Const General: cooperative, comfortable and no acute distress Nutritional Appearance: obese and overweight Orientation/consciousness: patient oriented x3 HEENT Face and sinus: Yes face symmetric Teeth and gingiva: other (M[place]pti score is 4) Eyes Pupils: Equal, round and reactive pupils present Neck Neck: Yes full ROM Resp Effort & Inspection: normal respiratory effort and able to speak in complete sentences Neuro General: patient oriented x3 and moves all extremities Cranial nerves: Yes Facial sensation intact/muscles of mastication intact, Yes Equal, round and reactive pupils present, Yes Normal accommodation reflex present, Yes Midline tongue present, Yes Ability to bilaterally rotate head present and Yes Ability to bilaterally elevate shoulders present Cognition (Neuro): normal cognition Gait exam (Neuro): Normal gait present and Wide-based gait present Motor exam (neuro): 5/5 motor strength present throughout and Normal motor muscle tone present throughout Psych Appearance: grossly normal Speech and movement: Normal speech and movement present Thought process: Normal thought process present Results Reviewed Results Reviewed: PSG c/w AHI of 33.4 oxygen desaturation to <88% for over 5 mins. Assessment & Plan Assessment & Plan (1) Excessive daytime sleepiness: Code(s): G47.19 - Other hypersomnia Category: Medical Plan PSG reviewed and pt has ZITA will send [facility] to start her on cpap therapy and monitor for compliance. BMI is elevated to 48 will refer her to weight management as pt is interested in Zepbound or a GLP 1. Sciatic pain, lumbar pain, and RLS will monitor. Labs CBC , CMP Ferritin, Homocysteine, MMA and Vit D A1c, TSH etc. 3month f/u Orders: Orders Complete Blood Count no Diff Today G47.19 - Other hypersomnia Homocysteine Today G47.19 - Other hypersomnia, G47.9 - Sleep disorder, unspecified, R53.83 - Other fatigue Vitamin D 25-OH Total Today G47.19 - Other hypersomnia Vitamin B6 Today G47.19 - Other hypersomnia Vitamin B12 and Folate Today G47.19 - Other hypersomnia Vitamin B1 Today G47.19 - Other hypersomnia Comprehensive Met. Panel Today G47.19 - Other hypersomnia Ferritin Today G47.19 - Other hypersomnia Hemoglobin A1c Today G47.19 - Other hypersomnia Methylmalonic Acid Today G47.19 - Other hypersomnia, G47.9 - Sleep disorder, unspecified, R53.83 - Other fatigue TSH reflex Free T4 Today G47.19 - Other hypersomnia Patient Instructions: Sleep Hygiene provided: set a scheduled bedtime and wake time to help regulate the circadian rhythm and balance the release of pituitary hormones. Sleep in a dark room, temperatures below 68 degrees, and no devices n bed. Limit caffeinated products 6 hours prior to bed, and limit fluids 2-4 hours prior to bed. Gentle night yoga, diffusing essential oils, and playing soft music can be relaxing. Coding Level of Care Code New Pt Level 4 (02899) Diagnoses Excessive daytime sleepiness G47.19 Sleep Questionnaire Difficulty falling asleep: No Difficulty staying asleep?: No Number of arousals: 0 Snoring: Yes Witnessed apneas: No Gasping arousals: No Nocturia: No GERD: No Vivid dreams: No Acting out dreams: No Abnormal behavior in sleep: No Abnormal movements in sleep: No Morning headaches: Yes Excessive daytime sleepiness: No Daytime naps: No Restless legs: No Hallucinations: No Sleep paralysis: No Drop attacks: No Sleep Study: Yes CPAP: No
== END 2025-03-31 12:02 | disposition home or self-care (01) ==
LOC: HO.HSMC 10:44
PROVIDERS: PCP Internal Medicine; Visit Provider Physician Assistant Medical
DX: G47.19 Other hypersomnia (principal)
CPT/HCPCS: 99204

== ENCOUNTER 2025-05-07 10:40 | Outpatient (REF) | payer BC, SELFPAY ==
[2025-05-07 12:37] LABS: Alanine Aminotransferase 46 U/L (0-31); Albumin Level 4.5 g/dL (3.5-5.0); Alkaline Phosphatase 125 U/L (39-117); Anion Gap 13 (12-20); Aspartate Amino Transferase 51 U/L (5-31); Blood Urea Nitrogen 9 mg/dL (9-16); Calcium 9.7 mg/dL (8.4-10.2); Carbon Dioxide 25 mmol/L (22-29); Chloride 106 mmol/L (96-108); Cholesterol 243 mg/dL (<200); Estimated Glomerular Filt Rate 53; HDL Cholesterol 53 mg/dL (>40); Potassium 4.1 mmol/L (3.3-5.1); Sodium 140 mmol/L (135-145); Total Protein 7.9 g/dL (6.5-8.0); Triglycerides 203 mg/dL (<150)
[2025-05-07 12:50] LABS: HIV Num 1 0.08 S/CO (0.00-0.99); ~HepC Num1 0.08 S/CO (0.00-0.79); ~Hepatitis C Antibody Nonreactive (Nonreactive)
[2025-05-07 13:27] LABS: Free T4 (Free Thyroxine) < 0.42 ng/dL (0.71-1.85)
== END 2025-05-07 10:41 | disposition home or self-care (01) ==
LOC: HO.LAB 10:40
DX: Z00.00 Encounter for general adult medical examination without abnormal findings (principal); Z11.4 Encounter for screening for human immunodeficiency virus [HIV]; Z11.59 Encounter for screening for other viral diseases; Z13.6 Encounter for screening for cardiovascular disorders; Z13.29 Encounter for screening for other suspected endocrine disorder; Z20.6 Contact with and (suspected) exposure to human immunodeficiency virus [HIV]; Z20.5 Contact with and (suspected) exposure to viral hepatitis
CPT/HCPCS: 36415; 80053; 80061; 84439; 84443; 86803; 87389

== ENCOUNTER 2025-06-14 07:02 | Day surgery (SDC) | payer BC, SELFPAY ==
--- OUTSIDE RECORDS SUMMARY | 2025-05-13 08:24 | XMS_ITS | Encounter Summary ---
Author Organization [facility] Address [address] [place] [address] Phone Care Team Providers Care Manager Customer Service Name Role Phone Destini Rosales PA-C Primary Care Provider + [phone] Encounter Details Date Type Department Care Team ([facility] st Contact Info) Description 05/10/2025 Orders Only [facility] Medical [facility] [address] [place] [address] Provider, MD Jossue [address] [place], [place] [id number] Social History Tobacco Use Types Packs/Day Years Used Date Smoking Tobacco: Never Smokeless Tobacco: Never Alcohol Use Standard Drinks/Week Comments Not Currently 0 (1 standard drink = 0.6 oz pur e alcohol) Child or Family Care Answer Date Record ed Do you have problems with on e of the following making it difficult for you to work, study, or receive health care? No 04/16/2025 Education Answer Date Recorded Are you interested in help w ith more adult education (for example, completing high school, GED, job training, learning the [place] language, technical skills, or developing parenting skills)? No 04/16/2025 Are you concerned about learning? Not on file 04/16/2025 No 04/16/2025 Yes 04/16/2025 Food Answer Date Recorded Within the past 6 months we worried whether our food would run out before we got money to buy more. Never True 04/16/2025 Within the past 6 months the food we bought just didn't last and we didn't have enough money to get more. Never True Residential Stability Answer Date Recor ded What is your housing situation today? I have sari fonseca 04/16/2025 How many times have you move d in the past 12 months? Zero (I did not move) 04/16/2025 Paying for Meds Answer Date Recorded Do you have trouble paying for medicines? No 04/16/2025 Paying Utility Bills Answer Date Record ed Do you have trouble paying your heating or elect ricity bill? No 04/16/2025 Transportation Answer Date Recorded Has the lack of transportati on kept you from medical appointments or from getting medications? No 04/16/2025 Digital Access Answer Date Recorded No 04/16/2025 Yes 04/16/2025 Do you have reliable internet access at home? Ye s 04/16/2025 Do you have a device (e.g., phone, tablet, computer) with a working camera? Yes 04/16/2025 Intimate Partner Violence Answer Date R ecorded Denied Basic Needs Not on file 04/16/2025 In the past 12 months have y ou been in a relationship with a person who hurts, threatens, or tries to control you? No 04/16/2025 Worried food would run out Not on file 04/16 In the past 12 months have y ou been in a relationship with a person who hurts, threatens, or tries to control you? No 04/16/2025 Comments Unknown Sex and Gender Information Value Date Recorded Sex Assigned at Not on file Legal Sex Female 1:00 PM EDT Gender Identity Not on file Sexual Orientation Not on file documented as of this encounter Plan of Treatment Upcoming Encounters Date Type Department Care Team (Late st Contact Info) Description 07/15/2025 10:20 AM EST Office Visit [facility] [place] [facility] [address] [place] [address] Destini Rosales PA-C [address] [place] [address] [email or web address] documented as of this encounter Procedures Procedure Name Priority Date/Time Associated Diagnosis Comments OUTSIDE LAB Routine 05/07/2025 3:16 PM EST documented in this encounter Results * Outside Lab (Non-[facility]) (05/07/2025 3:16 PM EST) us Historical Provider LAB BLOOD BKR ORDERABLES Final Result documented in this encounter Visit Diagnoses Not on filedocumented in this encounter Additional Health Concerns Assessment Noted Time PHQ-2 Depression Total Score: 0 04/16/20 11:12 AM EDT documented as of this encounter Care Teams Manager Customer Service Relationship Specialty Start Date End Date Destini Rosales PA-C [address] [place] [id number] [email or web address] PCP - General Physician Medical Researcher 04/16/25 documented as of this encounter Additional Source Comments The information contained in this document represents components of the legal health record. It is not the complete legal health record.[facility]
--- OUTSIDE RECORDS SUMMARY | 2025-05-13 08:25 | XMS_ITS | Clinical Summary ---
Author Organization [facility] Address [address] [place] [address] Phone Care Team Providers Care Keno Writer/Runner Name Role Phone Destini Rosales PA-C Primary Care Provider + [phone] Allergies No known active allergies Medications SUMAtriptan (IMITREX) 100 MG tablet Take 100 mg by mouth once as needed for migraine. Can repeat dose in 2 hours if needed. Do not exceed 2 doses in a 24 hour period. Max dose 200mg/ day Active levothyroxine (SYNTHROID, LEVOTHROID) 137 MCG tabletIndicatio ns:Hypothyroidi sm Take 1 tablet (137 mcg total) by mouth every morning. 30 tablet 2 5 Active levothyroxine (SYNTHROID, LEVOTHROID) 125 MCG tablet Take 125 mcg by mouth daily. 05/11/20 25 Discontinu ed(No longer taking) Active Problems Problem Noted Date Diagnosed Date Routine general medical exam ination at a health care facility 04/16/2025 Assessment & Plan (04/16/2025 11:57 AM EDT): Overall doing well. Will obtain routine labs including CMP, lipid panel, thyroid panel as well as one-time HIV and hepatitis C screening. Due for mammogram, ordered, patient would like this done at [place]. Up-to-date with Pap smear according to patient's, will try to obtain records. Never had colon cancer screening, patient declines colonoscopy but is amiable to Cologuard. Cologuard ordered. Discussed routine dental and vision screening. Obstructive sleep apnea 04/16/2025 Assessment & Plan (04/16/2025 11:56 AM EDT): History of sleep apnea currently using CPAP machine that was recently initiated and she reports doing well with it. Following with neurology for this. Hypothyroidism 04/16/2025 Assessment & Plan (04/16/2025 11:57 AM EDT): History of hypothyroidism currently on levothyroxine 125 mcg daily. Will obtain a thyroid panel to assess. Migraine without aura 04/16/2025 Assessment & Plan (04/16/2025 11:57 AM EDT): Migraines without aura well-managed with sumatriptan as needed. Encounter for weight management 04/16/2025 Assessment & Plan (04/16/2025 11:57 AM EDT): Patient is significantly overweight with a weight of 263 pounds, unable to assess BMI is no height was obtained during this office visit. She reports having a poor lifestyle including poor diet and exercise, she often reports binge eating and eating poor quality foods including fast food. She does not exercise at all. I do think a GLP-1 medication would be great for her, especially with her sleep apnea history, however I discussed with the patient that I would highly recommend she focus on lifestyle modifications for the next 3 months prior to initiating medication. We discussed in depth a well-balanced diet and routine physical activity as well as meal prepping which she is planning on trying. Will follow-up in 3 months to reassess and if she is actively working on these lifestyle modifications, will prescribe set bound at that time. Encounters Date Type Department Care Team Description 05/10/2025 Orders Only [facility] Internal Medicine [address] [place] [address] Provider, MD Jossue 04/16/2025 11:20 AM EDT Office Visit [facility] Internal [facility] [address] [facility] [place] [address] Destini Rosales PA-C Routine general medical examination at a health care facility (Primary Dx); Screening for human immunodeficiency virus; Need for hepatitis C screening test; Encounter for screening mammogram for malignant neoplasm of breast; Colon cancer screening; Obstructive sleep apnea; Acquired hypothyroidism; Migraine without aura and without status migrainosus, not intractable; Encounter for weight management 03/09/2025 Telephone [facility] [place] [facility] [address] [facility] [place] [address] Pcp, Unknown Forms & Paperwork from Last 3 Months Immunizations No known immunizations Family History Medical History Relation Comments Diabetes Mother Hypothyroidism Mother Osteoarthritis Mother Relation Status Comments Mother Social History Tobacco Use Types Packs/Day Years Used Date Smoking Tobacco: Never Smokeless Tobacco: Never Tobacco Cessation:Counseling Given: Not Answered Alcohol Use Standard Drinks/Week Comments Not Currently [...] high school, GED, job training, learning the [place] language, technical skills, or developing parenting skills)? [...] your housing situation today? I have sari sing 04/16/2025 How many times have you move [...] on file Sexual Orientation Not on file Last Filed Vital Signs Vital Sign Reading Time Taken Comments Blood Pressure 110/76 04/16/2025 11:14 AM EDT Pulse 65 04/16/2025 11:14 AM EDT Temperature - - Respiratory Rate 17 04/16/2025 11:1 4 AM EDT Oxygen Saturation 99% 04/16/2025 11: 14 AM EDT Inhaled Oxygen Concentration - - Weight 119.6 kg (263 lb 9.6 oz) 025 11:14 AM EDT Height - - Body Mass Index - - Plan of Treatment Upcoming Encounters Date Type Department Care Team (Late st Contact Info) Description 07/15/2025 10:20 AM EST Office Visit [facility] [address] [place] [address] Destini Rosales PA-C [address] [place] [address] Health Maintenance Due Date Last Done Comments Adult Td,Tdap Booster 1971 LIPID PANEL 1971 TSH LEVEL 1971 HEPATITIS C SCREENING 1989 HIV ONE-TIME SCREENING (18-6 5 YEARS) 1989 PAP SMEAR 1992 COLOGUARD 2016 COLONOSCOPY 2016 COLORECTAL CANCER SCREENING 2016 FIT TEST 2016 FOBT 2016 SIGMOIDOSCOPY 2016 VIRTUAL COLONOSCOPY 2016 PNEUMOCOCCAL VACCINES (50+ y ears) (1 of 1 - PCV) 2021 ZOSTER VACCINES (1 of 2) 2021 INFLUENZA VACCINE (#1) 2025 COVID-19 VACCINE (1 - 2024-2 6 season) 2025 DEPRESSION SCREENING 04/16/2026 04/16/2025 MAMMOGRAM 04/16/2027 04/16/2025 RSV VACCINE (1 - 1-dose 75+ series) 2046 SMOKING STATUS SCREENING (On ce After 26 Yrs) Completed 04/16/2025 HEPATITIS A VACCINES Aged Out No long er eligible based on patient's age to complete this topic HIB VACCINES Aged Out No longer eligi ble based on patient's age to complete this topic IPV VACCINES Aged Out No longer eligi ble based on patient's age to complete this topic MENINGOCOCCAL VACCINES (ACWY) Aged Out No longer eligible based on patient's age to complete this topic MENINGOCOCCAL VACCINES (B) Aged Out N o longer eligible based on patient's age to complete this topic Medical Devices Not on file Procedures Procedure Name Priority Date/Time Associated Diagnosis Comments OUTSIDE LAB Routine 05/07/2025 3:16 PM EST BI MAMMOGRAM SCREENING (BILATERAL) Routine 04/16/2025 11:46 AM EDT Encounter for screening mammogram for malignant neoplasm of breast from Last 3 Months Results * Outside Lab (Non-[facility]) (05/07/2025 3:16 PM EST) us Historical Provider LAB BLOOD BKR ORDERABLES Final Result from Last 3 Months Insurance [facility] PPO EPO PPO EPO PPO [place] [address] [place] [address] [address] [place] [address] PPO EPO Care Teams Keno Writer/Runner Relationship Specialty Start Date End Date Destini Rosales PA-C [address] [place] [address] [email or web address] PCP - General Physician Furniture Installer 04/16/25 Additional Source Comments The information contained in this document represents components of the legal health record. It is not the complete legal health record.[facility]
[2025-06-14 07:22] VITALS: BMI 48.7
[2025-06-14 07:24] VITALS: BP 112/51; PULSE 80; RESP 18; TEMP 36.6; O2SAT 96
--- NOTE | 2025-06-14 08:06 | MHC.SHP ---
Pre-Procedural Eval Section A - 24 Hr Update-Section A only Date of Service: 06/14/25 The patient is an INPATIENT: No Changes since office visit: No Cold of Flu in the past 2 weeks, No New Medical Problems, No Changes in Medication and No Patient answered all questions The patient has been examined within 24 hours of the surgical procedure. The History & Physical has been completed within 30 days and I have reviewed it.: Yes Section B - Complete if H&P > 30 days Chief Complaint: Trigger thumb, right thumb Allergies: Allergies Allergy/AdvReac Type Severity Reaction Status Date / Time No Known Allergies Allergy Verified 06/14/25 07:31 Plan Diagnosis/Plan: Unchanged I have reviewed the history and physical and performed a pertinent physical examination on my patient. No changes have occurred unless specified. Time Spent With Patient Time: Total time managing care of this patient today ____ minutes.
--- NOTE | 2025-06-14 08:06 | W.PM.OPN ---
Operative Note Operative Note Date of Service: 06/14/25 Narrative: Operative Note Preop diagnosis: 1. Right thumb Trigger finger Postop diagnosis: Same Procedure: 1. Right thumb A1 jose alfredo release Surgeon: Rianna Burns MD Relationship Mgr: None Anesthesia: local block using 1% lidocaine with epinephrine Findings: No locking or catching after A1 jose alfredo release EBL: Less than 5 mL Tourniquet time: None Specimens: None Complications: None Disposition: Brought to recovery room in stable condition Plan: Follow-up for 10-14 days for wound check and suture removal Indications: The patient is 55 years old, with a right trigger thumb that has been unresponsive to nonoperative management. The risks and benefits of operative treatment including but not limited to risk of damage to blood vessels, nerves, tendons, infection, persistent pain, persistent symptoms, recurrence or possible need for additional surgery were discussed with the patient and the patient wishes to proceed with surgery. Procedure: Once consent was obtained a local block was performed in the preop area using a combination of 1% lidocaine with epinephrine. The patient was then brought back to the operating suite and placed on the operative table in supine position. The right upper extremity was prepped and draped in a standard surgical fashion. Once assured that we had a good block, a 1.5 cm oblique incision was made centered over the A1 jose alfredo of the right thumb . The incision was made through the skin to the subcutaneous tissues using a #15 blade. Careful dissection was made down to the level of the A1 jose alfredo using tenotomy scissors, with care being taken to protect the nearby neurovascular structures. A longitudinal incision was made in the A1 jose alfredo 1st using a #15 blade, then using tenotomy scissors under direct visualization. The A1 jose alfredo was noted to be thickened. Following our A1 jose alfredo release, we no longer saw any locking or catching of the digit with flexion and extension. Once satisfied with our A1 jose alfredo release the wound was copiously irrigated with normal saline and hemostasis was obtained with a brief period of local pressure. The skin edges were reapproximated with some 5.0 nylon suture material and a sterile dressing was applied. The patient appears to have tolerated the procedure well and with no complications. All digits were well vascularized at the conclusion of the case.
[2025-06-14 09:04] VITALS: BP 142/73; PULSE 68; RESP 18; O2SAT 98
== END 2025-06-14 09:16 | disposition home or self-care (01) ==
PROVIDERS: Visit Provider Orthopaedic Surgery
PROC: (CPT 26055; principal; 2025-06-14 08:10)
DX: M65.311 Trigger thumb, right thumb (principal); M79.641 Pain in right hand; M79.89 Other specified soft tissue disorders; I83.90 Asymptomatic varicose veins of unspecified lower extremity; Z90.49 Acquired absence of other specified parts of digestive tract; Z98.51 Tubal ligation status
CPT/HCPCS: 26055; J0165; J2003

== ENCOUNTER → 2025-06-14 07:02 | Outpatient (BNV) | payer BC, SELFPAY | PROVIDERS: Visit Provider Orthopaedic Surgery | DX: M65.311 Trigger thumb, right thumb (principal) | CPT/HCPCS: 26055 ==